=== PATIENT | female | born 1955 | race Caucasian/White ===

== ENCOUNTER → 2018-01-05 15:18 | Outpatient (CLI) | payer OTHER, SELFPAY ==
[2018-01-05 17:45] LABS: Hematocrit 37.2 % (37-47); Hemoglobin 12.6 g/dl (12.0-15.0); Mean Corp Hgb Conc 33.9 g/gl (32-36); Mean Corpuscular Hgb 30.8 pg (27.0-32.0); Mean Platelet Vol. 8.9 fl (6.2-12.0); Platelet Count 413 K/mm3 (150-450); RBC Distribution Width CV 13.1 % (11.6-14.6); RBC Distribution Width SD 43.1 fl (35.1-43.9); Red Blood Count 4.09 M/mm3 (4.2-5.4)
[2018-01-05 17:49] LABS: Scan Indicated on CBC? Y/N YES- FLAGS NOTED
[2018-01-05 18:06] LABS: Vitamin B12 > 2000 pg/mL (211-911)
[2018-01-05 18:11] LABS: AST(SGOT) 11 U/L (15-37); Alanine Aminotransfer ALT/SGPT 21 U/L (13-56); Albumin, Serum 3.9 g/dL (3.2-5.0); Alkaline Phosphatase 71 U/L (45-117); Anion Gap 9 (5-15); BUN 22 mg/dL (7-18); BUN/Creat Ratio 20.6 RATIO (10-20); Calcium,Total 9.5 mg/dL (8.5-10.1); Chloride 88 mmol/L (98-107); Creatinine, Serum 1.07 mg/dL (0.55-1.02); EST Glomerular Filtration Rate 55 mL/min (>60); Est Glom Filt Rate - Afr Amer 67 mL/min (>60); Globulin 3.9 g/dL (2.2-4.2); Glucose 92 mg/dL (74-106); Potassium 2.7 mmol/L (3.5-5.1); Protein, Total 7.8 g/dL (6.4-8.2); Sodium Level 126 mmol/L (136-145); Thyroid Stim Hormone (TSH) 1.78 uIU/mL (0.358-3.74)
== END ==
PROVIDERS: Family Provider Family Medicine; PCP Family Medicine; Visit Provider Family Medicine
DX: I10 Essential (primary) hypertension (principal); R53.83 Other fatigue; E78.5 Hyperlipidemia, unspecified; D89.9 Disorder involving the immune mechanism, unspecified
CPT/HCPCS: 36415; 80053; 82607; 84443; 85027

== ENCOUNTER → 2018-01-07 09:42 | Outpatient (CLI) | payer OTHER, SELFPAY ==
[2018-01-07 12:17] LABS: Anion Gap 9 (5-15); BUN 23 mg/dL (7-18); BUN/Creat Ratio 26.3 RATIO (10-20); Calcium,Total 9.2 mg/dL (8.5-10.1); Chloride 103 mmol/L (98-107); Creatinine, Serum 0.87 mg/dL (0.55-1.02); EST Glomerular Filtration Rate 70 mL/min (>60); Est Glom Filt Rate - Afr Amer 84 mL/min (>60); Glucose 107 mg/dL (74-106); Magnesium 1.7 mg/dL (1.6-2.6); Potassium 3.6 mmol/L (3.5-5.1); Sodium Level 137 mmol/L (136-145)
== END ==
PROVIDERS: Family Provider Family Medicine; PCP Family Medicine; Visit Provider Family Medicine
DX: E87.1 Hypo-osmolality and hyponatremia (principal); E87.6 Hypokalemia
CPT/HCPCS: 36415; 80048; 83735

== ENCOUNTER → 2018-01-19 13:11 | Outpatient (CLI) | payer OTHER, SELFPAY ==
[2018-01-19 15:37] LABS: Absolute Lymphocyte Count 1.63 X10^3/ul (0.83-4.51); Absolute Neutrophil Count 5.1 X10^3/uL (2.0-7.7); Basophil# 0.07 X10^3/uL; Basophil% 0.9 % (0-1); Eosinophil# 0.67 X10^3/uL; Eosinophils% 8.3 % (0-5); Hematocrit 36.3 % (37-47); Hemoglobin 11.9 g/dl (12.0-15.0); Lymphocyte # 1.63 X10^3/ul (4.0); Lymphocyte % 20.3 % (19-41); Mean Corp Hgb Conc 32.8 g/gl (32-36); Mean Corpuscular Hgb 31.1 pg (27.0-32.0); Mean Corpuscular Volume 94.8 fL (81-99); Mean Platelet Vol. 9.1 fl (6.2-12.0); Monocyte# 0.58 X10^3/uL; Monocyte% 7.2 % (0-10); Neutrophil # 5.06 X10^3/uL (2.7-7.7); Neutrophil % 62.9 % (47-70); Platelet Count 355 K/mm3 (150-450); RBC Distribution Width CV 13.8 % (11.6-14.6); RBC Distribution Width SD 46.2 fl (35.1-43.9); Red Blood Count 3.83 M/mm3 (4.2-5.4)
[2018-01-19 16:01] LABS: POSITIVE COUNT NO; POSITIVE DIFFERENTIAL NO; POSITIVE MORPHOLOGY NO
[2018-01-19 16:04] LABS: ALB/GLOB Ratio 0.9 RATIO (0.9-2.4); AST(SGOT) 14 U/L (15-37); Alanine Aminotransfer ALT/SGPT 19 U/L (13-56); Albumin, Serum 3.7 g/dL (3.2-5.0); Alkaline Phosphatase 59 U/L (45-117); Anion Gap 11 (5-15); BUN 13 mg/dL (7-18); CRP < 2.90 mg/L (0.0-3.0); Calcium,Total 8.9 mg/dL (8.5-10.1); Chloride 104 mmol/L (98-107); Creatinine, Serum 0.72 mg/dL (0.55-1.02); EST Glomerular Filtration Rate 87 mL/min (>60); Est Glom Filt Rate - Afr Amer 105 mL/min (>60); Globulin 3.9 g/dL (2.2-4.2); Glucose 86 mg/dL (74-106); Magnesium 1.7 mg/dL (1.6-2.6); Potassium 3.5 mmol/L (3.5-5.1); Protein, Total 7.6 g/dL (6.4-8.2); Sodium Level 138 mmol/L (136-145)
[2018-01-19 16:07] LABS: Erythrocyte Sedimentation Rate 15 mm/hr (0-30)
[2018-01-21 14:36] LABS: ANTINUCLEAR ANTIBODIES DIRECT Negative (Negative)
== END ==
PROVIDERS: Family Provider Family Medicine; PCP Family Medicine; Visit Provider Family Medicine
DX: E87.6 Hypokalemia (principal); E87.1 Hypo-osmolality and hyponatremia
CPT/HCPCS: 36415; 80053; 83735; 85025; 85652; 86038; 86140; 86225; 86235

== ENCOUNTER → 2018-01-30 06:06 | Outpatient (CLI) | payer OTHER, SELFPAY ==
--- NOTE | 2018-01-30 08:54 | STRESSREP ---
Stress Test Report Pharmacologic myocardial perfusion stress test. 62-year-old lady with a history of severe fatigue and hypertension. Medications valsartan and aspirin. Stress protocol: Resting EKG demonstrates normal sinus rhythm with a rate of 72 bpm normal intervals and noted resting blood pressure is 146/92 mmHg. 0.4 mg of regadenoson was infused per usual protocol followed by rapid intravenous saline flush injection continuous EKG monitoring was performed. Patient maintained sinus rhythm throughout the recording with occasional premature ventricular complexes noted. The maximum heart rate attained was 106 bpm which was 67% of the maximum predicted heart rate the maximum workload attained was 1 metabolic equivalent. At rest there were no ST or T-wave changes noted suggest ischemia at peak infusion no ST or T-wave changes were noted suggest ischemia. No clinical angina was noted. Myocardial perfusion protocol. 11.4 mCi of technetium 99m sestamibi was injected at rest. 0.4 mg of regadenoson was infused per usual protocol peak infusion 33.8 mCi of technetium 99m sestamibi was injected. Stress images were obtained stress and rest images were reconstructed and compared in the short axis vertical long horizontal long axis. Gated images were also obtained pre- Perfusion SPECT analysis: Review of the stress images demonstrate normal uptake of tracer noted in the septum anterior wall and anterolateral wall. There is a medium-sized defect noted in the mid inferior wall extending to the inferior lateral wall. This is present on the stress and resting images to a similar extent suggesting a previous inferior lateral infarcted zone. There is minimal annemarie-infarct ischemia present. Gated SPECT analysis. The gated ejection fraction is noted to be 71%. 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 Minimal annemarie-infarct ischemia present. Preserved ejection fraction.
== END ==
PROVIDERS: Family Provider Family Medicine; PCP Family Medicine; Visit Provider Family Medicine
DX: I10 Essential (primary) hypertension (principal); R06.09 Other forms of dyspnea; R53.83 Other fatigue
CPT/HCPCS: 78452; 93017; A9500; A4216; J2785

== ENCOUNTER → 2018-04-06 07:42 | Outpatient (CLI) | payer OTHER, SELFPAY ==
--- NOTE | 2018-04-06 07:44 | ECHOD_ITS ---
Reason For Study: Abnormal Stress Test Procedure This was a 2D Doppler, Color Flow transthoracic echocardiogram. The exam was of adequate technical quality. Exam performed in department. Left Ventricle Normal LV size. Left ventricular systolic function is normal. The estimated ejection fraction is 55 %. Diastolic function: considered indeterminate. No regional wall motion abnormalities noted. Right Ventricle Normal RV size. Normal systolic function. Atria Normal left atrium. Normal right atrium. No doppler evidence for ASD. Mitral Valve There is no mitral annular calcification. Normal mitral valve. Trivial mitral valve insufficiency. Tricuspid Valve Normal tricuspid valve. Mild tricuspid valve insufficiency. Right ventricular systolic pressure estimated to be 21 mmHg. Aortic Valve Trisinus/trileaflet aortic valve. Normal aortic valve. Pulmonic Valve The pulmonic valve is not well visualized. Great Vessels Normal sized aortic root. Pericardium/Pleural No pericardial effusion. MMode/2D Measurements & Calculations LVIDd: 4.4 cm IVSd: 1.0 cm LVOT diam: 2.0 cm LVIDs: 3.5 cm LVPWd: 0.90 cm LVOT area: 3.1 cm2 RVDd: 3.5 cm FS: 20.4 % Ao root diam: 2.9 cm LAV(MOD-bp): 44.6 ml LVAd ap4: 19.2 cm2 LA dimension: 3.4 cm LAV(MOD-bp) Indexed: 27.1 ml/m2 EDV(MOD-sp4): 45.7 ml LAV(MOD-sp2): 43.8 ml EDV(sp4-el): 45.6 ml LAV(MOD-sp4): 42.4 ml LVAs ap4: 12.1 cm2 ESV(MOD-sp4): 22.8 ml ESV(sp4-el): 21.2 ml EF(MOD-sp4): 50.2 % EF(sp4-el): 53.4 % SV(MOD-sp4): 23.0 ml SV(sp4-el): 24.3 ml LA A4 area: 16.5 cm2 RA A4 area: 12.7 cm2 Time Measurements MV dec time: 0.17 sec Doppler Measurements & Calculations MV E max yeison: 83.0 cm/sec Lat Peak E' Yeison: 7.6 cm/sec Med Peak E' Yeison: 6.5 cm/sec MV A max yeison: 110.0 cm/sec E/E' lat: 11.0 E/E' med: 12.7 MV E/A: 0.75 MV V2 max: 98.9 cm/sec MV P1/2t max yeison: 88.0 cm/sec Ao V2 max: 107.0 cm/sec MV max P.9 mmHg MV P1/2t: 94.9 msec Ao max P.6 mmHg MV V2 mean: 54.0 cm/sec MV dec slope: 271.3 cm/sec2 Ao V2 mean: 67.6 cm/sec MV mean P.4 mmHg MVA(P1/2t): 2.3 cm2 Ao mean P.1 mmHg MV V2 VTI: 31.5 cm Ao V2 VTI: 23.5 cm MVA(VTI): 1.9 cm2 KAVITA(I,D): 2.6 cm2 KAVITA(V,D): 2.5 cm2 LV V1 max: 85.1 cm/sec SV(LVOT): 61.0 ml PA V2 max: 72.5 cm/sec LV V1 max P.9 mmHg LV V1 mean P.3 mmHg LV V1 mean: 52.5 cm/sec LV V1 VTI: 19.5 cm TR max yeison: 209.1 cm/sec TR max P.5 mmHg Interpretation Summary Left ventricular systolic function is normal. The estimated ejection fraction is 55 %. Trivial mitral valve insufficiency. Mild tricuspid valve insufficiency. Right ventricular systolic pressure estimated to be 21 mmHg. Diastolic function: considered indeterminate. Ordering Physician: Sree Gill Referring Physician: Sree Gill Performed By: Gallo Mcleod RCS
[2018-04-06 10:08] LABS: Absolute Lymphocyte Count 1.59 X10^3/ul (0.83-4.51); Absolute Neutrophil Count 5.5 X10^3/uL (2.0-7.7); Basophil# 0.09 X10^3/uL; Basophil% 1.1 % (0-1); Eosinophil# 0.52 X10^3/uL; Eosinophils% 6.3 % (0-5); Hematocrit 39.3 % (37-47); Hemoglobin 12.6 g/dl (12.0-15.0); Lymphocyte # 1.59 X10^3/ul (4.0); Lymphocyte % 19.1 % (19-41); Mean Corp Hgb Conc 32.1 g/gl (32-36); Mean Corpuscular Hgb 31.3 pg (27.0-32.0); Mean Corpuscular Volume 97.5 fL (81-99); Mean Platelet Vol. 9.6 fl (6.2-12.0); Monocyte# 0.61 X10^3/uL; Monocyte% 7.3 % (0-10); Neutrophil # 5.48 X10^3/uL (2.7-7.7); Neutrophil % 65.8 % (47-70); Platelet Count 270 K/mm3 (150-450); RBC Distribution Width CV 13.2 % (11.6-14.6); RBC Distribution Width SD 46.5 fl (35.1-43.9); Red Blood Count 4.03 M/mm3 (4.2-5.4); White Blood Count 8.3 K/mm3 (4.4-11.0)
[2018-04-06 10:09] LABS: POSITIVE COUNT NO; POSITIVE DIFFERENTIAL NO; POSITIVE MORPHOLOGY NO
[2018-04-06 10:17] LABS: International Normalized Ratio 1.2; Prothrombin Time (Protime)PT. 15.6 SECONDS (11.7-14.9)
[2018-04-06 10:18] LABS: Partial Thromboplast Time 37.1 Seconds (24.1-36.2)
[2018-04-06 10:36] LABS: Anion Gap 5 (5-15); BUN 10 mg/dL (7-18); BUN/Creat Ratio 11.7 RATIO (10-20); Calcium,Total 9.2 mg/dL (8.5-10.1); Chloride 104 mmol/L (98-107); Creatinine, Serum 0.86 mg/dL (0.55-1.02); EST Glomerular Filtration Rate 71 mL/min (>60); Est Glom Filt Rate - Afr Amer 86 mL/min (>60); Glucose 80 mg/dL (74-106); Potassium 3.6 mmol/L (3.5-5.1); Sodium Level 138 mmol/L (136-145)
== END ==
PROVIDERS: Family Provider Family Medicine; PCP Family Medicine; Visit Provider Internal Medicine Cardiovascular Disease
DX: I10 Essential (primary) hypertension (principal); E78.5 Hyperlipidemia, unspecified; R94.39 Abnormal result of other cardiovascular function study
CPT/HCPCS: 36415; 80048; 85025; 85610; 85730; 93306

== ENCOUNTER 2018-04-10 10:02 | Day surgery (SDC) | payer OTHER, SELFPAY ==
--- NOTE | 2018-04-06 08:58 | RAD_ITS ---
STUDY: X-RAY CHEST REASON FOR EXAM: Female, 62 years old. Abnormal stress test. TECHNIQUE: PA and lateral views of the chest. COMPARISON: October 11, 2011 FINDINGS: The lungs are clear and expanded. There is no demonstrated pleural abnormality. Normal size heart. Normal mediastinum and jose. Normal visualized pulmonary arteries. Normal visualized aortic arch and descending thoracic aorta. There are diffuse degenerative changes of the visualized thoracic spine. Normal visualized ribs, clavicles, and shoulders. There is no demonstrated abnormality of the visualized soft tissue structures of the upper abdomen. RAD/Chest PA and Lateral IMPRESSION: No acute cardiopulmonary process. Electronically Signed: Feli Bolanos MD at 19:27 EDT Tel , Service support ,
[2018-04-09 10:51] VITALS: BMI 25.9
--- NOTE | 2018-04-10 14:34 | CL.D_ITS ---
Patient Name: LISSY MERCHANT Study Date: 04/10/2018 Performing: Sree Gill MD Ht: 61.81 inches 157 cm : 1955 Wt: 141.1 lbs 64 kg Age: 62 Gender: female BSA: 1.64 PROCEDURE(S) PERFORMED [id number]/LV CLINICAL PROFILE AND INDICATIONS Heart Failure: None Stress/Imaging Stress Test w/SPECT MPI: Yes Result: PositiveStress Test with SPECT MPI: Positive Angina Classification Anginal Classification w/in 2 Weeks: CCS III CAD Presentations: Other: Fatigue CONCLUSIONS Elevated Left Ventricular End Diastolic Pressure Segmented LV Regional Wall Motion Abnormalities with overall preserved LV systolic function LVEF: by LV gram 60 % Normal coronary arteries RECOMMENDATIONS Risk factor modification Medical therapy DESCRIPTION OF PROCEDURE The patient arrived to the procedure lab. The risks and benefits of the procedure as well as a full d escription of our services here and current unavailability of surgical backup were fully explained to the patient and/or their significant other prior to the catheterization. The Timeout was completed, verifying the correct patient and procedure. The patient's procedural site was prepped and draped in the usual fashion. Local anesthetic was given subcutaneously to right groin region with Lidocaine 2%. Using a modified Seldinger technique, arterial access was obtained via the right femoral artery, a 4 Fr sheath was inserted Left Coronary Artery selective angiography was performed in multiple views us ing a 4 Fr. JL5 catheter. Right Coronary Artery selective angiography was then performed in multiple views using a 4 Fr. 3DRC catheter. Left Ventriculography was performed in MESA projection using a 4 Fr . Pigtail catheter. LV to AO pullback pressures were then recorded.The arterial sheath was pulled and manual compression applied until hemostasis is achieved. CORONARY ANGIOGRAPHY DOMINANCE: Right Dominant LEFT HEART ASSESSMENT Left Ventricular Ejection Fraction: by LV Gram 60 % Inferior Mid Akinesis Elevated Left Ventricular End Diastolic Pressure LVEDP: 21 mmHg LEFT MAIN: Proximal [place] and otherwise angiographically normal LEFT ANTERIOR DECENDING ARTERY: Angiographically normal CIRCUMFLEX ARTERY: Angiographically normal RIGHT CORONARY ARTERY: Angiographically normal VALVE FINDINGS: Normal Aortic Valve function Normal Mitral Valve function AORTIC ROOT: Angiographically normal COMPLICATIONS No Complications PROCEDURE MEDICATIONS Versed 1 mg IV Versed 1 mg IV Oxygen: 2 L/min via nasal cannula SUMMARY OF HEMODYNAMIC DATA Time AIR REST ECG 10:33:13 AO 142/72 (102) SA 11:43:55 LV 153/6, 32 11:51:25 LV 159/0, 21 11:51:31 LV 148/0, 22 11:52:25 LVp 144/0, 21 11:52:30 AOp 145/70 (103) 11:52:35 ECG 12:17:04 Signed By Sree Gill MD On 04/10/2018 14:33:59 Sree Gill MD
== END 2018-04-10 16:04 | disposition home or self-care (01) ==
LOC: CLSP 10:03
PROVIDERS: Family Provider Family Medicine; PCP Family Medicine; Visit Provider Internal Medicine Cardiovascular Disease
DX: R94.39 Abnormal result of other cardiovascular function study (principal); E78.5 Hyperlipidemia, unspecified; I10 Essential (primary) hypertension; R53.83 Other fatigue; K21.9 Gastro-esophageal reflux disease without esophagitis; J45.909 Unspecified asthma, uncomplicated; K50.90 Crohn's disease, unspecified, without complications; Z87.891 Personal history of nicotine dependence; Z79.51 Long term (current) use of inhaled steroids; Z79.82 Long term (current) use of aspirin; Z79.899 Other long term (current) drug therapy
CPT/HCPCS: 71046; 93458; 99152; 99153; J7040; Q9967; C1769; C1894

== ENCOUNTER → 2018-05-26 07:45 | Outpatient (CLI) | payer OTHER, SELFPAY ==
--- NOTE | 2018-05-26 07:46 | ECHOD_ITS ---
Reason For Study: TAKOTSUBO SYNDROME Procedure This was a limited 2D transthoracic echocardiogram. The exam was of adequate technical quality. Limited views were obtained. Exam performed in department. Left Ventricle Normal LV size. Left ventricular systolic function is normal. The estimated ejection fraction is 60 %. No regional wall motion abnormalities noted. Right Ventricle Normal size and thickness. Normal systolic function. Atria Normal left atrium. Normal right atrium. Mitral Valve There is no mitral annular calcification. Normal mitral valve. Tricuspid Valve Normal tricuspid valve. Trivial tricuspid valve insufficiency. Aortic Valve The aortic valve is not well visualized. Pulmonic Valve The pulmonic valve is not well visualized. Pericardium/Pleural No pericardial effusion. MMode/2D Measurements & Calculations LVIDd: 4.3 cm IVSd: 1.1 cm LVIDs: 3.0 cm LVPWd: 1.0 cm FS: 28.8 % Interpretation Summary Limited views were obtained. Left ventricular systolic function is normal. The estimated ejection fraction is 60 %. Trivial tricuspid valve insufficiency. Ordering Physician: Sree Gill Referring Physician: Justin Dixon Performed By: Nicole Cody, RDCS, RVT
== END ==
PROVIDERS: Family Provider Family Medicine; PCP Family Medicine; Visit Provider Internal Medicine Cardiovascular Disease
DX: I51.81 Takotsubo syndrome (principal)
CPT/HCPCS: 93308

== ENCOUNTER → 2018-07-13 09:24 | Outpatient (CLI) | payer OTHER, SELFPAY ==
[2018-07-13 12:14] LABS: Cholesterol 134 mg/dL (200); High Density Lipoprotein 64 mg/dL; Triglycerides 98 mg/dL; Very Low Density Lipoprotein 20 mg/dL (5-40)
[2018-07-13 12:16] LABS: Vitamin D,25 Hydroxy 55.5 ng/mL (29.95-100.01)
== END ==
PROVIDERS: Family Provider Family Medicine; PCP Family Medicine; Visit Provider Family Medicine
DX: E78.5 Hyperlipidemia, unspecified (principal); M85.80 Other specified disorders of bone density and structure, unspecified site
CPT/HCPCS: 36415; 80061; 82306

== ENCOUNTER → 2018-09-10 07:46 | Outpatient (CLI) | payer OTHER, SELFPAY ==
--- NOTE | 2018-09-10 07:49 | BI_ITS ---
MAMMOGRAPHY - BILATERAL SCREENING 3-D JAE SYNTHESIS REASON FOR EXAM: Female, 63 years old. Bilateral Screening 3-D tomosynthesis PERTINENT HISTORY: No significant family history. TECHNIQUE: 2-D mammograms and 3-D Jae synthesis of the breast (s) were performed. CAD was performed. COMPARISON: July 24, 2017, June 30, 2015 FINDINGS: The breast composition is almost entirely fat. There are stable lymph nodes in both axillae. Scattered benign calcifications are seen. No dense spiculated masses or suspicious microcalcifications are identified. No architectural distortion is identified. There is no skin thickening or retraction. There has been no significant change since the prior study. BI/SCREENING MAMM (CAD), BILAT IMPRESSION: No mammographic signs of malignancy. Routine yearly mammograms recommended. ASSESSMENT CATEGORY: BIRADS Category 2: Benign. A letter regarding these results will be sent to the patient by the facility within 30 days. FOLLOW UP RECOMMENDATION: Yearly follow up mammogram recommended. (A) Approximately 10% of breast cancers are not detected by mammography. A normal mammogram should not delay biopsy of a clinically suspicious abnormality. Electronically Signed: Kolby Sharp MD at 10:42 EST , Service support ,
== END ==
PROVIDERS: Family Provider Family Medicine; PCP Family Medicine; Visit Provider Obstetrics & Gynecology
DX: Z12.31 Encounter for screening mammogram for malignant neoplasm of breast (principal)
CPT/HCPCS: 77063; 77067

== ENCOUNTER → 2018-10-14 09:41 | Outpatient (CLI) | payer OTHER, SELFPAY ==
[2018-09-18 14:39] VITALS: BMI 26.7
[2018-10-14 12:14] LABS: Erythrocyte Sedimentation Rate 5 mm/hr (0-30)
[2018-10-14 12:16] LABS: Hematocrit 37.9 % (37-47); Hemoglobin 12.1 g/dl (12.0-15.0); Mean Corp Hgb Conc 31.9 g/gl (32-36); Mean Corpuscular Hgb 31.8 pg (27.0-32.0); Mean Corpuscular Volume 99.7 fL (81-99); Mean Platelet Vol. 9.8 fl (6.2-12.0); Platelet Count 244 K/mm3 (150-450); RBC Distribution Width CV 13.7 % (11.6-14.6); RBC Distribution Width SD 48.8 fl (35.1-43.9)
[2018-10-14 12:17] LABS: Scan Indicated on CBC? Y/N NO
== END ==
PROVIDERS: Family Provider Family Medicine; PCP Family Medicine; Referring Provider Internal Medicine Gastroenterology; Visit Provider Internal Medicine Gastroenterology
DX: K50.90 Crohn's disease, unspecified, without complications (principal)
CPT/HCPCS: 36415; 85027; 85652

== ENCOUNTER → 2018-11-06 08:27 | Outpatient (CLI) | payer OTHER, SELFPAY ==
[2018-09-18 14:39] VITALS: BMI 26.7
--- NOTE | 2018-11-06 08:34 | RAD_ITS ---
PROCEDURE: SMALL BOWEL SERIES DATE OF EXAMINATION: November 06, 2018. INDICATION: Female, 63 years old. History of Crohn's disease. PHYSICIAN: Dalton Jackson M.D. FLUOROSCOPY TIME (if supplied): (1:09) minutes/seconds TECHNIQUE: Radiographic and fluoroscopic images were taken of the small intestine following the ingestion of barium. COMPARISON: Comparison is made with prior examination dated June 25, 2012. FINDINGS: A preliminary supine KUB was obtained. There is an unremarkable bowel gas pattern. Fecal material is present throughout the colon. Surgical clips are seen in the right lower quadrant. The lung bases are unremarkable. The osseous structures are normal. The patient orally ingested approximately 12 ounces of thin barium Normal visualized fundus, body, and antrum of the stomach. Normal duodenal bulb, C-loop, and proximal jejunum. Normal visualized mucosal folds of the jejunum and ileum. There are no demonstrated dilatations, strictures, or masses of the small intestine. There is no mass displacement of the loops of small intestine. There is a normal motor pattern with barium reaching the colon within approximately 30 minutes. Spot films under fluoroscopic observation demonstrated a normal terminal ileum and ileocecal valve. RAD/Small Bowel Series Only IMPRESSION: Normal small bowel series. Electronically Signed: Dalton Jackson MD at 10:45 EST , Service support ,
== END ==
PROVIDERS: Family Provider Family Medicine; PCP Family Medicine; Referring Provider Internal Medicine Gastroenterology; Visit Provider Internal Medicine Gastroenterology
DX: K50.90 Crohn's disease, unspecified, without complications (principal)
CPT/HCPCS: 74250

== ENCOUNTER → 2018-12-28 | Outpatient (CLI) | payer OTHER, SELFPAY ==
[2018-12-21 08:40] VITALS: BMI 26.7
--- NOTE | 2018-12-28 16:33 | RAD_ITS ---
STUDY: X-RAY CHEST REASON FOR EXAM: Female, 63 years old. Cough TECHNIQUE: Frontal and lateral views COMPARISON: April 06, 2018 FINDINGS: The lungs are clear and expanded. There is no demonstrated pleural abnormality. Normal size heart. Normal mediastinum and jose. Normal visualized pulmonary arteries. Normal visualized aortic arch and descending thoracic aorta. Normal visualized thoracic spine. Normal visualized ribs, clavicles, and shoulders. There is no demonstrated abnormality of the visualized soft tissue structures of the upper abdomen. RAD/Chest PA and Lateral IMPRESSION: Normal x-ray examination of the chest. Electronically Signed: Eugenio Rivera DO at 21:57 EDT Tel [phone], Service support ,
== END | disposition home or self-care (01) ==
LOC: RAD 16:31
PROVIDERS: Family Provider Family Medicine; PCP Family Medicine; Referring Provider Family Medicine; Visit Provider Family Medicine
DX: R05 Cough (principal)
CPT/HCPCS: 71046

== ENCOUNTER → 2019-04-07 | Outpatient (CLI) | payer OTHER, SELFPAY ==
[2018-12-21 08:40] VITALS: BMI 26.7
--- NOTE | 2019-04-07 11:24 | RAD_ITS ---
STUDY: X-RAY - RIGHT FOOT CLINICAL: Female, 63 years old. Pain and swelling across the foot TECHNIQUE: 3 view(s) of the foot. COMPARISON: None. FINDINGS: Normal talus, calcaneus, and tarsal bones. Normal visualized subtalar, talonavicular, calcaneocuboid, tarsal and tarsometatarsal articulations. Normal metatarsi. There is degenerative arthrosis of the metatarsophalangeal joint of the hallux . Normal tibial and fibular sesamoid bones. Normal interphalangeal joint of the great toe. Normal phalanges of the great toe. Normal second through fifth metatarsophalangeal joints. PIP and DIP joint arthrosis The soft tissue structures are unremarkable. RAD/Foot min 3 Views IMPRESSION: Degenerative arthrosis, no demonstrated fracture or suspicious osseous lesion Electronically Signed: Andres Farmer MD at 12:11 EDT , Service support ,
== END | disposition home or self-care (01) ==
LOC: HPRAD 11:21
PROVIDERS: Family Provider Family Medicine; PCP Family Medicine; Referring Provider Family Medicine; Visit Provider Family Medicine
DX: M79.671 Pain in right foot (principal)
CPT/HCPCS: 73630

== ENCOUNTER 2019-05-18 17:55 | Emergency (ER) | payer OTHER, SELFPAY ==
[2018-12-21 08:40] VITALS: BMI 26.7
[2019-05-18 17:57] VITALS: BP 188/81; PULSE 67; RESP 18; TEMP 36.7; O2SAT 99; BMI 29.7
[2019-05-18 18:04] VITALS: O2SAT 98
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
--- NOTE | 2019-05-18 18:09 | RAD_ITS ---
STUDY: X-RAY - RIGHT SHOULDER REASON FOR EXAM: Female, 63 years old. Shoulder pain TECHNIQUE: 4 view(s) of the shoulder. COMPARISON: None. FINDINGS: Normal glenohumeral articulation. Normal acromioclavicular joint. Normal acromion. Normal humeral head and visualized proximal humerus. The soft tissue structures are unremarkable. Normal visualized pulmonary apex. RAD/Shoulder min 2 Views IMPRESSION: Normal x-ray examination of the shoulder. Electronically Signed: Rupesh Damon DO at 18:53 EDT Tel , Service support ,
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
--- NOTE | 2019-05-18 18:20 | RAD_ITS ---
STUDY: X-RAY - LUMBAR SPINE REASON FOR EXAM: Female, 63 years old. Back pain TECHNIQUE: 3 view(s) of the lumbar spine were obtained. COMPARISON: None FINDINGS: Normal lumbar lordosis. There is no substantial scoliosis. There is a normal alignment of the vertebrae. There is multilevel endplate spondylosis of the lumbar vertebrae. There is multi-level degenerative disc disease with multi-level disc space narrowing. There is no demonstrated fracture. The soft tissue structures are unremarkable. RAD/Lumbar Spine 2 or 3 Views IMPRESSION: Degenerative changes of the spine, as detailed above. Electronically Signed: Rupesh Damon DO at 19:24 EDT Tel , Service support ,
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
[2019-05-18 19:59] VITALS: BP 152/84; PULSE 78; RESP 16; O2SAT 95
== END 2019-05-18 20:00 | disposition home or self-care (01) ==
LOC: ED 18:41
PROVIDERS: Emergency Provider Emergency Medicine; Family Provider Family Medicine; PCP Family Medicine
DX: S29.012A Strain of muscle and tendon of back wall of thorax, initial encounter (principal); S16.1XXA Strain of muscle, fascia and tendon at neck level, initial encounter; I25.10 Atherosclerotic heart disease of native coronary artery without angina pectoris; I25.2 Old myocardial infarction; I10 Essential (primary) hypertension; K50.90 Crohn's disease, unspecified, without complications; Z79.82 Long term (current) use of aspirin; Z79.899 Other long term (current) drug therapy; V43.52XA Car driver injured in collision with other type car in traffic accident, initial encounter; Y93.I9 Activity, other involving external motion; Y92.410 Unspecified street and highway as the place of occurrence of the external cause; Y99.8 Other external cause status
CPT/HCPCS: 70450; 72072; 72100; 72125; 73030; 99284; J7030

== ENCOUNTER → 2019-08-09 07:52 | Outpatient (CLI) | payer OTHER, SELFPAY ==
[2019-08-09 12:04] LABS: Absolute Neutrophil Count 2.5 X10^3/uL (2.0-7.7); Basophil# 0.05 X10^3/uL; Basophil% 0.9 % (0-1); Eosinophil# 0.59 X10^3/uL; Eosinophils% 10.4 % (0-5); Hematocrit 39.6 % (37-47); Hemoglobin 12.6 g/dL (12.0-15.0); Lymphocyte % 31.7 % (19-41); Mean Corp Hgb Conc 31.8 g/dL (32-36); Mean Corpuscular Hgb 30.9 pg (27.0-32.0); Mean Corpuscular Volume 97.1 fL (81-99); Monocyte# 0.66 X10^3/uL; Monocyte% 11.6 % (0-10); NRBC Flagged by Analyzer 0 % (0-5); Neutrophil # 2.54 X10^3/uL (2.7-7.7); Neutrophil % 44.9 % (47-70); Platelet Count 267 K/mm3 (150-450); RBC Distribution Width CV 13.2 % (11.6-14.6); RBC Distribution Width SD 47.4 fl (35.1-43.9); Red Blood Count 4.08 M/mm3 (4.2-5.4); White Blood Count 5.7 K/mm3 (4.4-11.0)
[2019-08-09 12:25] LABS: AST(SGOT) 15 U/L (15-37); Alanine Aminotransfer ALT/SGPT 18 U/L (13-56); Albumin, Serum 3.7 g/dL (3.2-5.0); Alkaline Phosphatase 60 U/L (45-117); Anion Gap 8 (5-15); BUN 15 mg/dL (7-18); BUN/Creat Ratio 18.2 RATIO (10-20); Chloride 105 mmol/L (98-107); Cholesterol 129 mg/dL (200); Creatinine, Serum 0.82 mg/dL (0.55-1.02); EST Glomerular Filtration Rate 74 mL/min (>60); Est Glom Filt Rate - Afr Amer 90 mL/min (>60); Globulin 3.7 g/dL (2.2-4.2); Glucose 85 mg/dL (74-106); High Density Lipoprotein 58 mg/dL; Potassium 3.7 mmol/L (3.5-5.1); Protein, Total 7.4 g/dL (6.4-8.2); Sodium Level 139 mmol/L (136-145); Triglycerides 98 mg/dL; Very Low Density Lipoprotein 20 mg/dL (5-40)
[2019-08-13 20:07] LABS: QNTFERON TB Mitogen Value > 10.00 IU/mL (.); QNTFERON TB Nil Value 0.03 IU/mL (.); QNTFERON TB1+ Ag Value 0.03 IU/mL (.); QNTFERON TB2+ Ag Value 0.03 IU/mL (.)
[2019-08-14 13:34] LABS: QNTIFERON TB Positive Criteria Negative (Negative)
== END ==
PROVIDERS: Family Provider Family Medicine; PCP Family Medicine; Visit Provider Family Medicine
DX: Z00.00 Encounter for general adult medical examination without abnormal findings (principal); L40.0 Psoriasis vulgaris; Z79.899 Other long term (current) drug therapy
CPT/HCPCS: 36415; 80053; 80061; 85025; 86480

== ENCOUNTER → 2019-08-30 17:06 | Outpatient (CLI) | payer OTHER, SELFPAY ==
[2019-08-30 09:03] VITALS: BMI 29.7
== END ==
PROVIDERS: Family Provider Family Medicine; PCP Family Medicine; Referring Provider Obstetrics & Gynecology; Visit Provider Obstetrics & Gynecology
DX: N32.81 Overactive bladder (principal)
CPT/HCPCS: 87086

== ENCOUNTER → 2019-09-30 12:20 | Outpatient (CLI) | payer OTHER, SELFPAY ==
[2019-08-30 09:03] VITALS: BMI 29.7
--- NOTE | 2019-09-30 12:21 | BI_ITS ---
MAMMOGRAPHY - BILATERAL SCREENING REASON FOR EXAM: Female, 64 years old. Routine annual screening examination. PERTINENT HISTORY: Non-contributory. TECHNIQUE: Digital bilateral breast jae (3D mammographic acquisition) in the CC and MLO projections. 2-D mediolateral oblique (MLO) and craniocaudad (CC) views of both breasts were obtained. CAD: Full Field Digital Mammography with Computer Added Detection was performed. COMPARISON: Comparison is made with prior study dated September 10, 2018 and July 24, 2017. FINDINGS: Breast Composition: The breasts are heterogeneously dense, which may obscure small masses. There are no dominant masses or suspicious calcifications. Stable benign appearing bilateral axillary lymph nodes. No other significant abnormalities are identified. There has been no significant change since the prior study. BI/SCREEN MAMM (CAD) W/JAE BILAT IMPRESSION: Stable bilateral screening mammogram. Yearly follow-up mammogram recommended. (A) ASSESSMENT CATEGORY: BIRADS Category 2: Benign. A letter regarding these results will be sent to the patient by the facility within 30 days. Approximately 10% of breast cancers are not detected by mammography. A normal mammogram should not delay biopsy of a clinically suspicious abnormality. [id number] Electronically Signed: Dalton Jackson, at 13:54 EST , Service support ,
--- NOTE | 2019-09-30 12:43 | BD_ITS ---
STUDY: DUAL ENERGY X-RAY ABSORPTIOMETRY / DXA REASON FOR EXAM: Female, 64 years old. [employer]- EARLY AT 41 YRS OLD -- HX OF HRT IN PAST FOR 13 YRS -- HX OF SMOKING FOR SHORT WHILE IN PAST -- TAKES STEROID MEDS NEEDED FOR CROHN''S -- TAKES 1200MG CALCIUM + MULTIVITAMIN -- DOES NO EXERCISE -- NO HANK TECHNIQUE: Bone Mineral Density (BMD) measurements of lumbar spine and bilateral hips were obtained. COMPARISON: Comparison is made with prior study dated July 24, 2017. FINDINGS: Lumbar Spine (L1-L4): g/cm2 (1.108) / T-score (-0.8) / Z-score (0.7) Findings are suggestive of normal bone density with a low fracture risk. Left Femur Total: g/cm2 (0.999) / T-score (-0.1) / Z-score (1.1) Left Femoral Neck: g/cm2 (0.939) / T-score (-0.7) / Z-score (0.7) Right Femur Total: g/cm2 (0.925) / T-score (-0.7) / Z-score (0.5) Right Femoral Neck: g/cm2 (0.874) / T-score (-1.2) / Z-score (0.2) The T-Scores on the most recent prior examination were: Lumbar Spine (L1-L4): There has been improvement of bone density since the previous examination. Left Femur Total: which represents a worsening of 1.5%. Right Femur Total: which represents a worsening of 3.2%. BD/Dexa Bone Density Study IMPRESSION: The patient is considered osteopenic as outlined below according to World Wili Organization (WHO) criteria with a low fracture risk. There has been worsening of bone density since the previous examination. Reference Information: The T-score is the number of standard deviations above or below the standard which is normal for young adults at their peak bone mineral density. The World Health Organization (WHO) interprets the T-scores as follows: Above -1 Normal bone density Between -1 and -2.5 Osteopenia Equal to / or below -2.5 Osteoporosis As a practical clinical guideline, osteopenia may be graded as follows: Mild -1 through -1.5 Moderate -1.6 through -2.0 Severe -2.1 through -2.4 The Z-score is the number of standard deviations above or below age-matched controls. A Z-score of less than -1.5 would be considered abnormal. References: 1. NIH Osteoporosis and Related Bone Diseases http://www.osteo.org 2. International Society for Clinical Densitometry http://www.iscd.org 3. National Osteoporosis Foundation http://www.nof.org Electronically Signed: Dalton Jackson, at 14:31 EST , Service support ,
== END ==
PROVIDERS: Family Provider Family Medicine; PCP Family Medicine; Referring Provider Obstetrics & Gynecology; Visit Provider Obstetrics & Gynecology
DX: E28.39 Other primary ovarian failure (principal); Z12.31 Encounter for screening mammogram for malignant neoplasm of breast
CPT/HCPCS: 77063; 77067; 77080

== ENCOUNTER → 2020-06-06 | Outpatient (CLI) | payer OTHER, SELFPAY ==
[2019-12-22 11:00] VITALS: BMI 26.4
[2020-06-06 08:15] LABS: CREATININE FINGERSTICK 0.9 mg/dL (0.55-1.02); EGFR FINGERSTICK > 60.0000 mL/min (>60)
--- NOTE | 2020-06-06 08:45 | CT_ITS ---
STUDY: CT ENTEROGRAPHY WITH CONTRAST REASON FOR EXAM: Female, 64 years old. Crohn''s WITH BOWEL RESECTION IN 1995. POSSIBLE FLARE UP. RADIATION DOSAGE (If Supplied By Facility): CTDIvol = ( 14.69 ) mGy, DLP = ( 1173.13 ) mGycm TECHNIQUE: Transaxial images were obtained from the dome of the diaphragm to the symphysis pubis with oral contrast. 450ml of Volumen was administered orally at 60 minutes and 40 minutes and 225ml of Volumen was administered 20 minutes and 10 minutes prior to scanning, to a total of 1,350ml. Oral and amp; IV breeza neutral and amp; 100mL Isovue-370 was administered intravenously. Sagittal and coronal images were reconstructed. TECHNICAL QUALITY: Image Quality: Satisfactory Small Bowel Distension: Adequate. Individualized dose optimization techniques were used for this CT. COMPARISON: Comparison is made with prior study dated 03/08/2015. FINDINGS: Bowel: Bowel wall thickening: Absent. Skip lesions: None. Vascularity: Normal. Enhancement: Normal. Fistula: None. Abscess: None. Other Findings: The lung bases are unremarkable. The visualized portions of the heart are within normal limits Fatty infiltration of the liver. Normal gallbladder and extrahepatic biliary system. Normal spleen. Normal pancreas. Normal bilateral adrenal glands. Normal right kidney. Normal left kidney. Normal visualized stomach. The patient is status post resection of the distal small bowel and partial right hemicolectomy. Postsurgical changes are seen. The appendix is visualized and appears normal. Normal abdominal aorta. Normal interior vena cava. Normal retroperitoneum. Normal urinary bladder. Prior hysterectomy. Normal abdominal wall. Normal osseous structures. CT/Abdomen/Pelvis WITH Contrast IMPRESSION: Postoperative changes in the right lower quadrant as described. No acute abnormality is seen. Electronically Signed: Dalton Jackson, at 10:55 EDT , Service support ,
== END | disposition home or self-care (01) ==
LOC: CT 07:55
PROVIDERS: PCP Family Medicine; Referring Provider Internal Medicine Gastroenterology; Visit Provider Internal Medicine Gastroenterology
DX: K50.90 Crohn's disease, unspecified, without complications (principal)
CPT/HCPCS: 74177; Q9967; A4216

== ENCOUNTER → 2020-06-20 | Outpatient (CLI) | payer OTHER, SELFPAY ==
[2020-06-09 10:32] VITALS: BMI 26.0
--- NOTE | 2020-06-20 09:46 | CDU_ITS ---
Reason For Study: Stenosis Rt. Velocities/BP Lt. Velocities/BP Prox CCA 52.2/12.6 cm/sec. Prox CCA 77.3/17.9 cm/sec. Mid CCA 56.0/15.4 cm/sec. Mid CCA 75.0/21.2 cm/sec. Dist CCA 62.6/19.2 cm/sec. Dist CCA 55.3/19.0 cm/sec. Prox ICA 52.0/17.9 cm/sec. Prox ICA 62.9/30.0 cm/sec. Mid ICA 82.7/26.7 cm/sec. Mid ICA 70.6/32.2 cm/sec. Dist ICA 81.7/26.7 cm/sec. Dist ICA 112.0/38.9 cm/sec. Rt. ICA/CCA = 1.48. Lt. ICA/CCA = 1.49. Prox ECA 99.2/16.8 cm/sec. Prox ECA 70.6/8.0 cm/sec. Rt. Vert. 50.9/20.1 cm/sec. Lt. Vert. 36.2/13.5 cm/sec. Right Extracranial There is intimal thickening but no significant atherosclerotic plaque noted in the right common carotid artery. There is heterogeneous, smooth atherosclerotic plaque noted in the right internal carotid artery. There is intimal thickening but no significant atherosclerotic plaque noted in the right external carotid artery. Antegrade flow is noted in the right vertebral artery. Left Extracranial There is intimal thickening but no significant atherosclerotic plaque noted in the left common carotid artery. There is heterogeneous, irregular atherosclerotic plaque noted in the left internal carotid artery. There is intimal thickening but no significant atherosclerotic plaque noted in the left external carotid artery. Procedure Carotid Duplex [id number]. Exam performed in department. Interpretation Summary Smooth plaque noted within the proximal right internal carotid artery with less than 50% stenosis <50% stenosis right external carotid Slightly irregular calcific plaque at the proximal left internal carotid artery with less than 50% stenosis <50% stenosis left external carotid Patent and antegrade vertebrals bilaterally No change from the previous examination of November 26, 2011 Ordering Physician: Sree Gill Referring Physician: Sree Gill Performed By: Amanda Lai RVT and Student
== END | disposition home or self-care (01) ==
LOC: CVS 09:46
PROVIDERS: PCP Family Medicine; Referring Provider Internal Medicine Cardiovascular Disease; Visit Provider Internal Medicine Cardiovascular Disease
DX: I65.22 Occlusion and stenosis of left carotid artery (principal); E78.5 Hyperlipidemia, unspecified; I10 Essential (primary) hypertension; I51.81 Takotsubo syndrome
CPT/HCPCS: 93880

== ENCOUNTER → 2020-08-08 15:16 | Outpatient (CLI) | payer OTHER, SELFPAY ==
[2020-08-08 12:39] VITALS: BMI 26.5
== END ==
PROVIDERS: PCP Family Medicine; Referring Provider Physician Assistant Surgical; Visit Provider Physician Assistant Surgical
DX: Z20.828 Contact with and (suspected) exposure to other viral communicable diseases (principal)
CPT/HCPCS: 87635; U0003

== ENCOUNTER → 2020-10-02 08:26 | Outpatient (CLI) | payer MEDICARE, BC, SELFPAY ==
[2020-08-14 09:41] VITALS: BMI 25.7
--- NOTE | 2020-10-02 08:29 | BI_ITS ---
MAMMOGRAPHY - BILATERAL SCREENING REASON FOR EXAM: Female, 65 years old. Routine annual screening examination. PERTINENT HISTORY: Non-contributory. TECHNIQUE: Digital bilateral breast jae (3D mammographic acquisition) in the CC and MLO projections. 2-D mediolateral oblique (MLO) and craniocaudad (CC) views of both breasts were obtained. CAD: Full Field Digital Mammography with Computer Added Detection was performed. COMPARISON: Comparison is made with prior examination dated 09/30/2019 and 09/10/2018. FINDINGS: Breast Composition: The breasts are heterogeneously dense, which may obscure small masses. There are no dominant masses or suspicious calcifications. Stable benign appearing bilateral axillary lymph nodes. No other significant abnormalities are identified. There has been no significant change since the prior study. BI/SCRN MAMM (CAD)W/JAE BILAT IMPRESSION: Stable bilateral screening mammogram. Yearly follow-up mammogram recommended. (A) ASSESSMENT CATEGORY: BIRADS Category 2: Benign. A letter regarding these results will be sent to the patient by the facility within 30 days. Approximately 10% of breast cancers are not detected by mammography. A normal mammogram should not delay biopsy of a clinically suspicious abnormality. [id number] Electronically Signed: Dalton Jackson MD at 9:24 EST , Service support ,
== END ==
PROVIDERS: PCP Family Medicine; Referring Provider Obstetrics & Gynecology; Visit Provider Obstetrics & Gynecology
DX: Z12.31 Encounter for screening mammogram for malignant neoplasm of breast (principal)
CPT/HCPCS: 77063; 77067

== ENCOUNTER → 2020-10-18 09:12 | Outpatient (CLI) | payer MEDICARE, BC, SELFPAY ==
[2020-06-09 10:32] VITALS: BMI 26.0
[2020-08-14 09:41] VITALS: BMI 25.7
[2020-10-18 12:12] LABS: Absolute Lymphocyte Count 1.59 X10^3/uL (0.83-4.51); Absolute Neutrophil Count 2.6 X10^3/uL (2.0-7.7); Basophil# 0.06 X10^3/uL; Basophil% 1.2 % (0-1); Eosinophil# 0.21 X10^3/uL; Eosinophils% 4.3 % (0-5); Hematocrit 38.3 % (37-47); Hemoglobin 12.2 g/dL (12.0-15.0); Lymphocyte # 1.59 X10^3/ul (4.0); Lymphocyte % 32.3 % (19-41); Mean Corp Hgb Conc 31.9 g/dL (32-36); Mean Corpuscular Hgb 30.3 pg (27.0-32.0); Mean Platelet Vol. 9.6 fl (6.2-12.0); Monocyte# 0.45 X10^3/uL; Monocyte% 9.1 % (0-10); NRBC Flagged by Analyzer 0 % (0-5); Neutrophil % 52.9 % (47-70); Platelet Count 258 K/mm3 (150-450); RBC Distribution Width CV 13.3 % (11.6-14.6); RBC Distribution Width SD 46.4 fl (35.1-43.9); Red Blood Count 4.03 M/mm3 (4.2-5.4); White Blood Count 4.9 K/mm3 (4.4-11.0)
[2020-10-18 12:30] LABS: Vitamin D,25 Hydroxy 55.2 ng/mL
[2020-10-18 12:44] LABS: AST(SGOT) 17 U/L (15-37); Alanine Aminotransfer ALT/SGPT 20 U/L (13-56); Albumin, Serum 3.6 g/dL (3.2-5.0); Alkaline Phosphatase 61 U/L (45-117); Anion Gap 6 (5-15); BUN 11 mg/dL (7-18); BUN/Creat Ratio 13.3 RATIO (10-20); Chloride 105 mmol/L (98-107); Cholesterol 142 mg/dL (200); Creatinine, Serum 0.82 mg/dL (0.55-1.02); EST Glomerular Filtration Rate 74 mL/min (>60); Est Glom Filt Rate - Afr Amer 89 mL/min (>60); Globulin 3.7 g/dL (2.2-4.2); Glucose 89 mg/dL (74-106); High Density Lipoprotein 80 mg/dL; Potassium 3.9 mmol/L (3.5-5.1); Protein, Total 7.3 g/dL (6.4-8.2); Sodium Level 136 mmol/L (136-145); Triglycerides 86 mg/dL; Very Low Density Lipoprotein 17 mg/dL (5-40)
== END ==
PROVIDERS: PCP Family Medicine; Visit Provider Family Medicine
DX: Z00.00 Encounter for general adult medical examination without abnormal findings (principal); M85.80 Other specified disorders of bone density and structure, unspecified site
CPT/HCPCS: 36415; 80053; 80061; 82306; 85025

== ENCOUNTER → 2021-01-08 13:57 | Outpatient (CLI) | payer MEDICARE, BC, SELFPAY ==
[2020-08-14 09:41] VITALS: BMI 25.7
[2021-01-08 15:28] LABS: Erythrocyte Sedimentation Rate 19 mm/hr (0-30)
[2021-01-08 15:33] LABS: Absolute Lymphocyte Count 1.18 X10^3/uL (0.83-4.51); Absolute Neutrophil Count 3.4 X10^3/uL (2.0-7.7); Basophil# 0.02 X10^3/uL; Basophil% 0.4 % (0-1); Eosinophils% 1.9 % (0-5); Hematocrit 37.9 % (37-47); Hemoglobin 12.2 g/dL (12.0-15.0); Lymphocyte # 1.18 X10^3/ul (0.83-4.51); Mean Corp Hgb Conc 32.2 g/dL (32-36); Mean Corpuscular Hgb 31.2 pg (27.0-32.0); Mean Corpuscular Volume 96.9 fL (81-99); Mean Platelet Vol. 9.8 fl (6.2-12.0); Monocyte# 0.62 X10^3/uL; Monocyte% 11.5 % (0-10); NRBC Flagged by Analyzer 0 % (0-5); Neutrophil # 3.41 X10^3/uL (2.7-7.7); Neutrophil % 63.5 % (47-70); Platelet Count 140 K/mm3 (150-450); RBC Distribution Width CV 14.4 % (11.6-14.6); RBC Distribution Width SD 51.7 fl (35.1-43.9); Red Blood Count 3.91 M/mm3 (4.2-5.4); White Blood Count 5.4 K/mm3 (4.4-11.0)
[2021-01-08 15:52] LABS: AST(SGOT) 20 U/L (15-37); Alanine Aminotransfer ALT/SGPT 33 U/L (13-56); Albumin, Serum 3.4 g/dL (3.2-5.0); Alkaline Phosphatase 61 U/L (45-117); Anion Gap 8 (5-15); BUN 17 mg/dL (7-18); BUN/Creat Ratio 22.4 RATIO (10-20); CRP 7.41 mg/L (0.0-3.0); Calcium,Total 8.6 mg/dL (8.5-10.1); Chloride 99 mmol/L (98-107); Creatinine, Serum 0.76 mg/dL (0.55-1.02); EST Glomerular Filtration Rate 81 mL/min (>60); Est Glom Filt Rate - Afr Amer 98 mL/min (>60); Globulin 3.3 g/dL (2.2-4.2); Glucose 94 mg/dL (74-106); Potassium 3.4 mmol/L (3.5-5.1); Protein, Total 6.7 g/dL (6.4-8.2); Rheumatoid Factor < 10.0 IU/mL (<15); Sodium Level 134 mmol/L (136-145)
[2021-01-09 10:40] LABS: Hepatitis B Surface Antibody Non-Reactive; Hepatitis B Surface Antigen Non-Reactive (Nonreactive); Hepatitis C Antibody Non-Reactive (Nonreactive)
[2021-01-10 17:12] LABS: ANTINUCLEAR ANTIBODIES DIRECT Negative (Negative)
[2021-01-11 07:48] LABS: CCP IgG Antibodies 7 units (0-19)
== END ==
PROVIDERS: PCP Family Medicine; Referring Provider Internal Medicine Rheumatology; Visit Provider Internal Medicine Rheumatology
DX: L40.59 Other psoriatic arthropathy (principal); L40.8 Other psoriasis; K50.90 Crohn's disease, unspecified, without complications; I10 Essential (primary) hypertension; R51.9 Headache, unspecified; I51.81 Takotsubo syndrome; Z79.899 Other long term (current) drug therapy
CPT/HCPCS: 36415; 80053; 85025; 85652; 86038; 86140; 86200; 86431; 86706; 86803; 87340

== ENCOUNTER → 2021-01-15 07:15 | Outpatient (CLI) | payer MEDICARE, BC, SELFPAY ==
[2020-08-14 09:41] VITALS: BMI 25.7
--- NOTE | 2021-01-15 07:29 | MRI_ITS ---
STUDY: MRI BRAIN WITH AND WITHOUT CONTRAST (ATTENTION INTERNAL AUDITORY CANALS - I.A.C.''s) REASON FOR EXAM: Female, 65 years old. R HEARING LOSS TECHNIQUE: Standardized multiplanar fat and water weighted pulse sequences were obtained. 13CC IV DOTAREM was administered for the contrast portion of the examination. COMPARISON: None. FINDINGS: Normal bilateral temporal bones. Normal bilateral internal auditory canals. There is no demonstrated intracanalicular or cisternal vestibular schwannoma (acoustic neuroma). There is no enhancement of the bilateral VIIth or VIIIth cranial nerves. Normal bilateral cochlea, vestibules and semicircular canals. Normal size of the ventricles and extra-axial spaces for the patient''s age. Normal white matter tracts of the supratentorial brain. There is no evidence for recent intracranial ischemia or other cause of cytotoxic edema on diffusion weighted imaging (DWI). Normal bilateral basal ganglia. Normal thalami. Normal flow voids within the major intracranial circulation suggesting patency by spin echo criteria. Normal venous enhancement. There is no enhancing intra-axial or extra-axial abnormality. There is no extra-axial fluid accumulation. Normal sella turcica, pituitary gland, infundibular stalk, optic chiasm and hypothalamus. Normal tectal plate and pineal gland. Normal midbrain, tay and medulla. Normal cerebellum. Normal basal cisterns. No demonstrated orbital abnormality, within the constraints of a routine brain study. Normal visualized paranasal sinuses. Normal calvarium and skull base. Normal visualized soft tissue structures. Normal visualized upper cervical spine. MRI/Brain W/WO Contrast IMPRESSION: Normal unenhanced and enhanced MRI of the bilateral internal auditory canals (I.A.C''s). Electronically Signed: Kenny Hughes MD at 11:45 EDT Tel , Service support ,
== END ==
PROVIDERS: PCP Family Medicine; Referring Provider Otolaryngology; Visit Provider Otolaryngology
DX: H90.41 Sensorineural hearing loss, unilateral, right ear, with unrestricted hearing on the contralateral side (principal)
CPT/HCPCS: 70553; A9575

== ENCOUNTER → 2021-01-16 | Outpatient (CLI) | payer MEDICARE, BC, SELFPAY ==
[2020-08-14 09:41] VITALS: BMI 25.7
== END | disposition home or self-care (01) ==
PROVIDERS: PCP Family Medicine; Visit Provider Family Medicine
DX: R50.9 Fever, unspecified (principal); R09.81 Nasal congestion; R53.83 Other fatigue
CPT/HCPCS: 87633; 87635; U0002

== ENCOUNTER → 2021-02-20 10:39 | Outpatient (CLI) | payer MEDICARE, BC, SELFPAY ==
[2020-08-14 09:41] VITALS: BMI 25.7
[2021-02-20 13:01] LABS: Progesterone Level < 0.21 ng/mL (See Comment)
[2021-02-20 13:15] LABS: Estradiol 12.8 pg/mL
[2021-02-23 07:07] LABS: QNTFERON TB Mitogen Value > 10.00 IU/mL (.); QNTFERON TB Nil Value 0 IU/mL (.); QNTFERON TB1+ Ag Value 0 IU/mL (.); QNTFERON TB2+ Ag Value 0 IU/mL (.)
[2021-02-23 11:12] LABS: DHEA Sulfate 16.6 ug/dL (20.4-186.6); QNTIFERON TB Positive Criteria Negative (Negative)
== END ==
PROVIDERS: PCP Family Medicine; Referring Provider Family Medicine; Visit Provider Family Medicine
DX: D84.9 Immunodeficiency, unspecified (principal); R23.2 Flushing; R61 Generalized hyperhidrosis
CPT/HCPCS: 36415; 82627; 82670; 84144; 84403; 84443; 86480; 82626

== ENCOUNTER → 2021-03-06 13:20 | Outpatient (CLI) | payer MEDICARE, BC, SELFPAY ==
[2020-08-14 09:41] VITALS: BMI 25.7
[2021-03-06 14:56] LABS: Erythrocyte Sedimentation Rate 13 mm/hr (0-30)
[2021-03-06 14:57] LABS: Absolute Lymphocyte Count 2.45 X10^3/uL (0.83-4.51); Absolute Neutrophil Count 3.5 X10^3/uL (2.0-7.7); Basophil# 0.05 X10^3/uL; Basophil% 0.8 % (0-1); Eosinophil# 0.17 X10^3/uL; Eosinophils% 2.6 % (0-5); Hematocrit 36.4 % (37-47); Hemoglobin 12.3 g/dL (12.0-15.0); Lymphocyte # 2.45 X10^3/ul (0.83-4.51); Lymphocyte % 37.2 % (19-41); Mean Corp Hgb Conc 33.8 g/dL (32-36); Mean Corpuscular Hgb 31.1 pg (27.0-32.0); Mean Corpuscular Volume 91.9 fL (81-99); Mean Platelet Vol. 9.7 fl (6.2-12.0); Monocyte# 0.45 X10^3/uL; Monocyte% 6.8 % (0-10); NRBC Flagged by Analyzer 0 % (0-5); Neutrophil # 3.45 X10^3/uL (2.7-7.7); Neutrophil % 52.3 % (47-70); Platelet Count 303 K/mm3 (150-450); RBC Distribution Width CV 13.9 % (11.6-14.6); RBC Distribution Width SD 46.4 fl (35.1-43.9); Red Blood Count 3.96 M/mm3 (4.2-5.4); White Blood Count 6.6 K/mm3 (4.4-11.0)
[2021-03-06 15:22] LABS: ALB/GLOB Ratio 1.2 RATIO (0.9-2.4); AST(SGOT) 24 U/L (15-37); Alanine Aminotransfer ALT/SGPT 23 U/L (13-56); Albumin, Serum 4.1 g/dL (3.2-5.0); Alkaline Phosphatase 55 U/L (45-117); Anion Gap 10 (5-15); BUN 12 mg/dL (7-18); BUN/Creat Ratio 11.4 RATIO (10-20); CRP < 2.90 mg/L (0.0-3.0); Calcium,Total 9.4 mg/dL (8.5-10.1); Chloride 98 mmol/L (98-107); Creatinine, Serum 1.05 mg/dL (0.55-1.02); EST Glomerular Filtration Rate 56 mL/min (>60); Est Glom Filt Rate - Afr Amer 68 mL/min (>60); Globulin 3.5 g/dL (2.2-4.2); Glucose 112 mg/dL (74-106); Potassium 3.4 mmol/L (3.5-5.1); Protein, Total 7.6 g/dL (6.4-8.2); Sodium Level 133 mmol/L (136-145)
== END ==
PROVIDERS: PCP Family Medicine; Referring Provider Family Medicine; Visit Provider Family Medicine
DX: R23.2 Flushing (principal); R61 Generalized hyperhidrosis; Z79.899 Other long term (current) drug therapy
CPT/HCPCS: 36415; 80053; 85025; 85652; 86140; 87086; 87088

== ENCOUNTER → 2021-03-27 07:42 | Outpatient (CLI) | payer MEDICARE, BC, SELFPAY ==
[2020-08-14 09:41] VITALS: BMI 25.7
--- NOTE | 2021-03-27 07:45 | CT_ITS ---
STUDY: CT CHEST, ABDOMEN T PELVIS WITH CONTRAST REASON FOR EXAM: Female, 65 years old. PSORIATIC ARTHRITIS AND CROHN''S DISEASE RADIATION DOSAGE (If Supplied By Facility): CTDIvol = ( 12.36 ) mGy, DLP = ( 899.46 ) mGycm TECHNIQUE: Transaxial imaging was performed following intravenous administration of Oral and IV Readi-CAT and 100mL Isovue-300. Individualized dose optimization techniques were used for this CT. COMPARISON: Comparison is made with prior CT scan of the thorax dated 10/14/[address] scan of the abdomen and pelvis dated 06/06/2020. FINDINGS: CHEST Mild increased markings in the posterior medial segment of the right lower lobe suggestive of scarring and/or atelectasis. There is no demonstrated pleural abnormality. Normal heart and pericardium. Normal mediastinum. Normal hilar regions. Normal unenhanced pulmonary arteries. Normal aorta arch and descending thoracic aorta. There are multi-level degenerative changes of the thoracic spine. There is no demonstrated abnormality of the visualized upper abdomen. ABDOMEN Subcentimeter cyst in the anterior aspect of the right lobe of the liver. This is unchanged. Mild fatty infiltration of the liver. Normal gallbladder and extrahepatic biliary system. Normal spleen. Normal pancreas. Normal bilateral adrenal glands. Normal right kidney. Normal left kidney. There is a small hiatal hernia. Normal small intestine. The patient is status post partial right hemicolectomy and resection of distal small bowel. There are scattered colonic diverticula consistent with diverticulosis. There is non-visualization of the appendix. Normal abdominal aorta. Normal inferior vena cava. Normal retroperitoneum. PELVIS Normal urinary bladder. Prior hysterectomy. Normal visualized small intestine. Normal visualized colon. There is no pelvic fluid. There is no pelvic lymphadenopathy or mass lesion. Normal visualized pelvic arteries. Normal abdominal wall. There are mild degenerative changes of the visualized lumbar spine. CT/CT Chest, Abd, Pel w/Contrast IMPRESSION: Normal enhanced CT chest, abdomen T pelvis examination. Electronically Signed: Dalton Jackson MD at 11:04 EDT , Service support ,
== END ==
PROVIDERS: PCP Family Medicine; Referring Provider Family Medicine; Visit Provider Family Medicine
DX: R23.2 Flushing (principal); R61 Generalized hyperhidrosis
CPT/HCPCS: 71260; 74177; Q9967

== ENCOUNTER → 2021-04-18 09:41 | Outpatient (CLI) | payer MEDICARE, BC, SELFPAY ==
[2020-08-14 09:41] VITALS: BMI 25.7
[2021-04-18 12:06] LABS: Absolute Lymphocyte Count 1.65 X10^3/uL (0.83-4.51); Absolute Neutrophil Count 2.6 X10^3/uL (2.0-7.7); Basophil# 0.03 X10^3/uL; Basophil% 0.6 % (0-1); Eosinophil# 0.17 X10^3/uL; Eosinophils% 3.4 % (0-5); Hematocrit 39.4 % (37-47); Hemoglobin 12.6 g/dL (12.0-15.0); Lymphocyte # 1.65 X10^3/ul (0.83-4.51); Lymphocyte % 33.3 % (19-41); Mean Corpuscular Hgb 31.7 pg (27.0-32.0); Mean Corpuscular Volume 99.2 fL (81-99); Mean Platelet Vol. 9.6 fl (6.2-12.0); Monocyte% 10.1 % (0-10); NRBC Flagged by Analyzer 0 % (0-5); Neutrophil # 2.59 X10^3/uL (2.7-7.7); Neutrophil % 52.4 % (47-70); Platelet Count 251 K/mm3 (150-450); RBC Distribution Width CV 14.1 % (11.6-14.6); RBC Distribution Width SD 51.6 fl (35.1-43.9); Red Blood Count 3.97 M/mm3 (4.2-5.4)
[2021-04-18 12:21] LABS: AST(SGOT) 18 U/L (15-37); Alanine Aminotransfer ALT/SGPT 21 U/L (13-56); Albumin, Serum 3.8 g/dL (3.2-5.0); Alkaline Phosphatase 57 U/L (45-117); Anion Gap 7 (5-15); BUN 17 mg/dL (7-18); BUN/Creat Ratio 21.5 RATIO (10-20); Calcium,Total 9.1 mg/dL (8.5-10.1); Chloride 106 mmol/L (98-107); Creatinine, Serum 0.79 mg/dL (0.55-1.02); EST Glomerular Filtration Rate 77 mL/min (>60); Est Glom Filt Rate - Afr Amer 94 mL/min (>60); Globulin 3.9 g/dL (2.2-4.2); Glucose 93 mg/dL (74-106); Potassium 3.8 mmol/L (3.5-5.1); Protein, Total 7.7 g/dL (6.4-8.2); Sodium Level 138 mmol/L (136-145)
[2021-04-18 12:42] LABS: Hepatitis B Surface Antigen Non-Reactive (Nonreactive)
[2021-04-21 05:07] LABS: QNTFERON TB Mitogen Value > 10.00 IU/mL (.); QNTFERON TB Nil Value 0.03 IU/mL (.); QNTFERON TB1+ Ag Value 0.03 IU/mL (.); QNTFERON TB2+ Ag Value 0.04 IU/mL (.)
[2021-04-21 08:35] LABS: QNTIFERON TB Positive Criteria Negative (Negative)
== END ==
PROVIDERS: Internal Medicine Rheumatology; PCP Family Medicine; Referring Provider Internal Medicine Gastroenterology; Visit Provider Internal Medicine Gastroenterology
DX: L40.59 Other psoriatic arthropathy (principal); K50.80 Crohn's disease of both small and large intestine without complications; L40.8 Other psoriasis; I10 Essential (primary) hypertension; I51.81 Takotsubo syndrome; R51.9 Headache, unspecified; Z79.899 Other long term (current) drug therapy
CPT/HCPCS: 36415; 80053; 85025; 86480; 87340

== ENCOUNTER → 2021-06-13 09:35 | Outpatient (CLI) | payer MEDICARE, BC, SELFPAY ==
[2021-06-13 12:31] LABS: Absolute Lymphocyte Count 1.54 X10^3/uL (0.83-4.51); Absolute Neutrophil Count 2.7 X10^3/uL (2.0-7.7); Basophil# 0.06 X10^3/uL; Basophil% 1.1 % (0-1); Eosinophil# 0.37 X10^3/uL; Hematocrit 40.1 % (37-47); Lymphocyte # 1.54 X10^3/ul (0.83-4.51); Mean Corp Hgb Conc 32.4 g/dL (32-36); Mean Corpuscular Hgb 33.1 pg (27.0-32.0); Mean Platelet Vol. 9.9 fl (6.2-12.0); Monocyte# 0.63 X10^3/uL; Monocyte% 11.9 % (0-10); NRBC Flagged by Analyzer 0 % (0-5); Neutrophil # 2.69 X10^3/uL (2.7-7.7); Neutrophil % 50.6 % (47-70); Platelet Count 292 K/mm3 (150-450); RBC Distribution Width CV 14.4 % (11.6-14.6); RBC Distribution Width SD 54.1 fl (35.1-43.9); Red Blood Count 3.93 M/mm3 (4.2-5.4); White Blood Count 5.3 K/mm3 (4.4-11.0)
[2021-06-13 12:47] LABS: AST(SGOT) 15 U/L (15-37); Alanine Aminotransfer ALT/SGPT 17 U/L (13-56); Albumin, Serum 3.8 g/dL (3.2-5.0); Alkaline Phosphatase 54 U/L (45-117); Anion Gap 9 (5-15); BUN 11 mg/dL (7-18); BUN/Creat Ratio 14.2 RATIO (10-20); Calcium,Total 9.1 mg/dL (8.5-10.1); Chloride 101 mmol/L (98-107); Creatinine, Serum 0.78 mg/dL (0.55-1.02); EST Glomerular Filtration Rate 79 mL/min (>60); Est Glom Filt Rate - Afr Amer 96 mL/min (>60); Glucose 95 mg/dL (74-106); Potassium 3.6 mmol/L (3.5-5.1); Protein, Total 7.8 g/dL (6.4-8.2); Sodium Level 137 mmol/L (136-145)
== END ==
PROVIDERS: PCP Family Medicine; Referring Provider Internal Medicine Rheumatology; Visit Provider Internal Medicine Rheumatology
DX: L40.59 Other psoriatic arthropathy (principal); K50.90 Crohn's disease, unspecified, without complications; I10 Essential (primary) hypertension; R51.9 Headache, unspecified; I51.81 Takotsubo syndrome; Z79.899 Other long term (current) drug therapy
CPT/HCPCS: 36415; 80053; 85025

== ENCOUNTER → 2021-06-21 | Outpatient (CLI) | payer MEDICARE, BC, SELFPAY | END | disposition home or self-care (01) | LOC: LABSPEC 06-22 06:38 | PROVIDERS: PCP Family Medicine; Referring Provider Family Medicine; Visit Provider Family Medicine | DX: Z20.822 Contact with and (suspected) exposure to COVID-19 (principal) | CPT/HCPCS: 87633; 87635; U0005; U0003 ==

== ENCOUNTER → 2021-08-24 | Outpatient (CLI) | payer MEDICARE, BC, SELFPAY | END | disposition home or self-care (01) | LOC: LABSPEC 16:40 | PROVIDERS: PCP Family Medicine; Visit Provider Family Medicine | DX: Z20.822 Contact with and (suspected) exposure to COVID-19 (principal) | CPT/HCPCS: 87635; U0005; U0003 ==

== ENCOUNTER → 2021-08-27 10:56 | Outpatient (CLI) | payer MEDICARE, BC, SELFPAY ==
[2021-08-27 12:26] LABS: Absolute Lymphocyte Count 1.43 X10^3/uL (0.83-4.51); Absolute Neutrophil Count 2.8 X10^3/uL (2.0-7.7); Basophil# 0.05 X10^3/uL; Eosinophil# 0.19 X10^3/uL; Eosinophils% 3.8 % (0-5); Hematocrit 35.8 % (37-47); Hemoglobin 11.9 g/dL (12.0-15.0); Lymphocyte # 1.43 X10^3/ul (0.83-4.51); Lymphocyte % 28.5 % (19-41); Mean Corp Hgb Conc 33.2 g/dL (32-36); Mean Corpuscular Hgb 33.7 pg (27.0-32.0); Mean Corpuscular Volume 101.4 fL (81-99); Mean Platelet Vol. 9.5 fl (6.2-12.0); Monocyte# 0.57 X10^3/uL; Monocyte% 11.4 % (0-10); NRBC Flagged by Analyzer 0 % (0-5); Neutrophil # 2.75 X10^3/uL (2.7-7.7); Neutrophil % 54.9 % (47-70); Platelet Count 231 K/mm3 (150-450); RBC Distribution Width CV 13.9 % (11.6-14.6); RBC Distribution Width SD 50.4 fl (35.1-43.9); Red Blood Count 3.53 M/mm3 (4.2-5.4)
[2021-08-27 12:44] LABS: ALB/GLOB Ratio 0.9 RATIO (0.9-2.4); AST(SGOT) 15 U/L (15-37); Alanine Aminotransfer ALT/SGPT 24 U/L (13-56); Albumin, Serum 3.3 g/dL (3.2-5.0); Alkaline Phosphatase 51 U/L (45-117); Anion Gap 5 (5-15); BUN 16 mg/dL (7-18); BUN/Creat Ratio 22.7 RATIO (10-20); Calcium,Total 9.3 mg/dL (8.5-10.1); Chloride 109 mmol/L (98-107); EST Glomerular Filtration Rate 88 mL/min (>60); Est Glom Filt Rate - Afr Amer 107 mL/min (>60); Globulin 3.7 g/dL (2.2-4.2); Glucose 93 mg/dL (74-106); Potassium 4.3 mmol/L (3.5-5.1); Sodium Level 140 mmol/L (136-145)
== END ==
PROVIDERS: PCP Family Medicine; Referring Provider Internal Medicine Rheumatology; Visit Provider Internal Medicine Rheumatology
DX: L40.59 Other psoriatic arthropathy (principal); Z79.899 Other long term (current) drug therapy; L40.8 Other psoriasis; R05.9 Cough, unspecified; K50.90 Crohn's disease, unspecified, without complications; I10 Essential (primary) hypertension; R51.9 Headache, unspecified; I51.81 Takotsubo syndrome
CPT/HCPCS: 36415; 80053; 85025; 87633

== ENCOUNTER → 2021-09-11 18:29 | Outpatient (CLI) | payer MEDICARE, BC, SELFPAY | PROVIDERS: PCP Family Medicine; Visit Provider Family Medicine | DX: R09.89 Other specified symptoms and signs involving the circulatory and respiratory systems (principal); R09.81 Nasal congestion; J02.9 Acute pharyngitis, unspecified | CPT/HCPCS: 87635; U0005; U0003 ==

== ENCOUNTER → 2021-09-13 12:09 | Outpatient (CLI) | payer MEDICARE, BC, SELFPAY ==
--- NOTE | 2021-09-13 12:13 | RAD_ITS ---
INDICATION: NASAL DRAINAGE EXAMINATION/TECHNIQUE: X-RAY - XR Sinuses Paranasal Min 3 Views COMPARISON: None. FINDINGS: There is no significant mucosal thickening. There are no air-fluid levels. Unremarkable aeration of the paranasal sinuses. The regional bones are grossly intact. RAD/Sinuses min 3 Views IMPRESSION: Unremarkable aeration of the paranasal sinuses. Electronically Signed: Donnell Corbett MD at 16:25 EST Tel , Service support ,
--- NOTE | 2021-09-13 12:13 | RAD_ITS ---
INDICATION: COUGH EXAMINATION/TECHNIQUE: X-RAY - XR Chest 2 Views COMPARISON: 04/06/2018. FINDINGS: LINES/DEVICES: None. LUNGS: Mild peribronchial cuffing is visualized. demonstrating no significant change in comparison to the prior study, no evidence of airspace opacification is seen. No evidence of focal infiltrate or consolidation. No evidence of pneumothorax or pleural effusion. MEDIASTINUM AND CARDIOVASCULAR STRUCTURES: Cardiac silhouette not enlarged. Central airways and mediastinal contour are unremarkable. BONES AND SOFT TISSUES: Unremarkable. RAD/Chest PA and Lateral IMPRESSION: No radiographic evidence of acute cardiopulmonary disease. Electronically Signed: Donnell Corbett MD at 16:27 EST Tel , Service support ,
== END ==
PROVIDERS: PCP Family Medicine; Referring Provider Family Medicine; Visit Provider Family Medicine
DX: R05.9 Cough, unspecified (principal); J34.89 Other specified disorders of nose and nasal sinuses
CPT/HCPCS: 70220; 71046

== ENCOUNTER 2021-10-05 09:52 | Outpatient (CLI) | payer MEDICARE, BC, SELFPAY ==
--- NOTE | 2021-10-05 09:54 | BI_ITS ---
MAMMOGRAPHY - BILATERAL SCREENING REASON FOR EXAM: Female, 66 years old. Routine annual screening examination. PERTINENT HISTORY: Non-contributory. TECHNIQUE: Digital bilateral breast jae (3D mammographic acquisition) in the CC and MLO projections. 2-D mediolateral oblique (MLO) and craniocaudad (CC) views of both breasts were obtained. CAD: Full Field Digital Mammography with Computer Added Detection was performed. COMPARISON: Comparison is made with prior study dated 10/02/2020 and 09/30/2019. FINDINGS: Breast Composition: The breasts are heterogeneously dense, which may obscure small masses. There are no dominant masses or suspicious calcifications. Stable benign-appearing bilateral axillary. No other significant abnormalities are identified. There has been no significant change since the prior study. BI/SCRN MAMM (CAD)W/JAE BILAT IMPRESSION: Stable bilateral screening mammogram. Yearly follow-up mammogram recommended. (A) ASSESSMENT CATEGORY: BIRADS Category 2: Benign. A letter regarding these results will be sent to the patient by the facility within 30 days. Approximately 10% of breast cancers are not detected by mammography. A normal mammogram should not delay biopsy of a clinically suspicious abnormality. [id number] Electronically Signed: Dalton Jackson MD at 11:36 EST , Service support ,
== END 2021-10-05 23:59 | disposition short-term general hospital (02) ==
LOC: OPBI 09:52
PROVIDERS: PCP Family Medicine; Referring Provider Obstetrics & Gynecology; Visit Provider Obstetrics & Gynecology
DX: Z12.31 Encounter for screening mammogram for malignant neoplasm of breast (principal)
CPT/HCPCS: 77063; 77067

== ENCOUNTER 2021-11-16 09:50 | Outpatient (CLI) | payer MEDICARE, BC, SELFPAY ==
[2021-11-16 12:12] LABS: Absolute Neutrophil Count 3.4 X10^3/uL (2.0-7.7); Basophil# 0.05 X10^3/uL; Basophil% 0.9 % (0-1); Eosinophil# 0.18 X10^3/uL; Eosinophils% 3.2 % (0-5); Hematocrit 37.5 % (37-47); Hemoglobin 12.4 g/dL (12.0-15.0); Lymphocyte % 25.3 % (19-41); Mean Corp Hgb Conc 33.1 g/dL (32-36); Mean Corpuscular Hgb 33.3 pg (27.0-32.0); Mean Corpuscular Volume 100.8 fL (81-99); Mean Platelet Vol. 9.8 fl (6.2-12.0); Monocyte# 0.54 X10^3/uL; Monocyte% 9.7 % (0-10); NRBC Flagged by Analyzer 0 % (0-5); Neutrophil # 3.36 X10^3/uL (2.7-7.7); Neutrophil % 60.7 % (47-70); Platelet Count 229 K/mm3 (150-450); RBC Distribution Width CV 14.2 % (11.6-14.6); RBC Distribution Width SD 51.7 fl (35.1-43.9); Red Blood Count 3.72 M/mm3 (4.2-5.4); White Blood Count 5.5 K/mm3 (4.4-11.0)
[2021-11-16 12:30] LABS: ALB/GLOB Ratio 0.9 RATIO (0.9-2.4); AST(SGOT) 21 U/L (15-37); Alanine Aminotransfer ALT/SGPT 27 U/L (13-56); Albumin, Serum 3.5 g/dL (3.2-5.0); Alkaline Phosphatase 55 U/L (45-117); Anion Gap 3 (5-15); BUN 17 mg/dL (7-18); BUN/Creat Ratio 21.8 RATIO (10-20); Calcium,Total 8.9 mg/dL (8.5-10.1); Chloride 106 mmol/L (98-107); Creatinine, Serum 0.78 mg/dL (0.55-1.02); EST Glomerular Filtration Rate 78 mL/min (>60); Est Glom Filt Rate - Afr Amer 95 mL/min (>60); Globulin 3.7 g/dL (2.2-4.2); Glucose 91 mg/dL (74-106); Potassium 4.1 mmol/L (3.5-5.1); Protein, Total 7.2 g/dL (6.4-8.2); Sodium Level 138 mmol/L (136-145)
== END 2021-11-16 23:59 | disposition home or self-care (01) ==
LOC: MTLAB 09:50
PROVIDERS: PCP Family Medicine; Referring Provider Internal Medicine Rheumatology; Visit Provider Internal Medicine Rheumatology
DX: L40.59 Other psoriatic arthropathy (principal); K50.90 Crohn's disease, unspecified, without complications; L40.8 Other psoriasis; R51.9 Headache, unspecified; I51.81 Takotsubo syndrome; I10 Essential (primary) hypertension; Z79.899 Other long term (current) drug therapy
CPT/HCPCS: 36415; 80053; 85025

== ENCOUNTER 2021-12-05 14:57 | Outpatient (CLI) | payer MEDICARE, BC, SELFPAY ==
--- NOTE | 2021-12-05 15:10 | RAD_ITS ---
STUDY: CERVICAL SPINE X-RAY SERIES--5 VIEWS OF 1324 HOURS ON 12/05/2021 REASON FOR EXAM: 66-year-old female with neck pain. TECHNIQUE: 5 view(s) of the cervical spine were obtained. COMPARISON: None FINDINGS: There is moderate calcification in region of the left carotid bulb and mild calcification in the region of the right carotid bulb. No vertebral body fractures or subluxations. Moderate narrowing of the C5-6 intervertebral disc space with moderate anterior and posterior osteophytic degenerative changes. Mild anterior osteophytic degenerative changes at the C5 C6-7 level. Moderate osteophytic impingement on left C3-4 and C5-6 intervertebral disc spaces. Marked osteophytic impingement on the left C5-6 intervertebral disc space. Mild osteophytic impingement on the right C4-5 and C5-6 intervertebral disc spaces. Intact pedicles, processes and facets. RAD/Cerv Spine 4 or 5 Views IMPRESSION: 1. No vertebral body fractures or subluxations. 2. Moderate narrowing of the C5-6 intervertebral disc space with moderate anterior and posterior osteophytic degenerative changes. 3. Mild anterior osteophytic degenerative changes at the C5-6 level. 4. Moderate osteophytic impingement on the left C3-C4 and C5-6 intervertebral disc spaces and marked osteophytic impingement on the left C5-6 intervertebral disc space. 5. Mild osteophytic impingement on the right C4-C5 and C5-6 intervertebral disc spaces. 6. Intact pedicles, processes and facets. 7. Moderate calcification in the region of the left carotid bulb and mild calcification in the region of the right carotid bulb. Electronically Signed: Urban De Jesus MD at 2:43 EDT ,
== END 2021-12-05 23:59 | disposition home or self-care (01) ==
LOC: RAD 14:59
PROVIDERS: PCP Family Medicine; Referring Provider Anesthesiology Pain Medicine; Visit Provider Anesthesiology Pain Medicine
DX: M54.12 Radiculopathy, cervical region (principal)
CPT/HCPCS: 72050

== ENCOUNTER 2021-12-13 10:13 | Outpatient (CLI) | payer MEDICARE, BC, SELFPAY ==
--- NOTE | 2021-12-13 10:26 | RAD_ITS ---
STUDY: X-RAY - LUMBAR SPINE REASON FOR EXAM: Female, 66 years old. Back pain Radiculopathy, lumbar region TECHNIQUE: XR Spine Lumbar 2 or 3 Views COMPARISON: None FINDINGS: Normal lumbar lordosis. There is no substantial scoliosis. There is a normal alignment of the vertebrae. There is multilevel endplate spondylosis of the lumbar vertebrae. There is multi-level degenerative disc disease with multi-level disc space narrowing. The soft tissue structures are unremarkable. RAD/Lumbar Spine 2 or 3 Views IMPRESSION: Degenerative changes of the spine, as detailed above. Electronically Signed: Carlton Sagastume MD at 16:55 EDT ,
== END 2021-12-13 23:59 | disposition home or self-care (01) ==
PROVIDERS: PCP Family Medicine; Referring Provider Anesthesiology Pain Medicine; Visit Provider Anesthesiology Pain Medicine
DX: M54.16 Radiculopathy, lumbar region (principal)
CPT/HCPCS: 72100

== ENCOUNTER → 2022-01-23 | Outpatient (CLI) | payer MEDICARE, BC, SELFPAY ==
--- NOTE | 2022-01-23 06:40 | MRI_ITS ---
STUDY: MRI LUMBAR SPINE WITHOUT CONTRAST REASON FOR EXAM: Female, 66 years old. RADICULOPATHY TECHNIQUE: Standardized fat and water weighted pulse sequences were obtained in the sagittal and axial planes. COMPARISON: X-ray the lumbar spine dated December 13, 2021 FINDINGS: Normal lumbar lordosis. There is no substantial scoliosis. Normal conus medullaris that terminates at the T12-L1 level. No fracture or compression deformity or marrow edema. T12-L1: Normal endplates. Normal disc height, hydration and morphology. Normal bilateral facet joints. Normal central canal and bilateral lateral recesses. Normal bilateral intervertebral neural foramina. L1-2: Small anterior endplate spur disc complex. Mild disc space narrowing with diffuse disc desiccation and annular bulging. Slight retrolisthesis of L1 on L2 of 2 mm. Normal bilateral facet joints. Normal central canal and bilateral lateral recesses. Normal bilateral intervertebral neural foramina. L2-3: Small anterior endplate spur disc complex. Mild disc space narrowing with diffuse disc desiccation and annular bulging. Retrolisthesis of L2 on L3 of no more than 2 mm. Normal bilateral facet joints. Normal central canal and bilateral lateral recesses. Normal bilateral intervertebral neural foramina. L3-4: Normal endplates. Mild to moderate disc space narrowing and disc desiccation with minimal annular bulging. Small annular tear in the posterior aspect of the disc. Mild facet joint hypertrophy. Normal central canal and bilateral lateral recesses. Normal bilateral intervertebral neural foramina. L4-5: Normal endplates. Mild central and moderate posterior disc space narrowing with mild posterior annular bulging. Small posterior annular tear and superimposed midline disc protrusion also noted. Small right foraminal shallow disc protrusion. Mild to moderate facet joint and ligament of flava hypertrophy contribute to bilateral lateral recess stenosis without nerve root compression. Normal central canal. Normal bilateral intervertebral neural foramina. L5-S1: Normal endplates. Mild disc space narrowing with a shallow left paracentral disc protrusion in addition to a small annular tear of the disc. Slight retrolisthesis of L5 on S1 of 2 to 3 mm. Normal bilateral facet joints. Normal central canal and bilateral lateral recesses. Normal bilateral intervertebral neural foramina. Normal visualized sacral ala. Normal visualized paraspinous soft tissue structures. MRI/Spine Lumbar (Routine) IMPRESSION: Multilevel degenerative changes, as described above. Electronically Signed: Ever Mcelroy MD at 13:59 EDT ,
== END | disposition home or self-care (01) ==
LOC: MRI 06:34
PROVIDERS: PCP Family Medicine; Referring Provider Anesthesiology Pain Medicine; Visit Provider Anesthesiology Pain Medicine
DX: M54.16 Radiculopathy, lumbar region (principal)
CPT/HCPCS: 72148

== ENCOUNTER → 2022-02-07 | Outpatient (CLI) | payer MEDICARE, BC, SELFPAY ==
--- NOTE | 2022-02-07 11:38 | RAD_ITS ---
INDICATION: LEFT HIP PAIN EXAMINATION/TECHNIQUE: X-RAY - LEFT XR Hip Unilateral with Pelvis when performed; 2-3 Views 3 VIEWS COMPARISON: Lumbar spine radiograph from 12/13/2021. FINDINGS: No acute fracture or dislocation. Femoral heads are well-seated within the acetabulum. Joint spaces are intact. Moderate bilateral femoral acetabular joint osteoarthritis. No destructive osseous changes. Multiple surgical clips project over the right sacrum. Soft tissues are otherwise unremarkable. RAD/HIP, UNI W/ Pelvis 2-3 Views IMPRESSION: 1. No acute findings. 2. Moderate bilateral femoroacetabular joint osteoarthritis. Electronically Signed: Puma Craig, at 14:28 EDT ,
[2022-02-07 13:09] LABS: Absolute Lymphocyte Count 2.42 X10^3/uL (0.83-4.51); Absolute Neutrophil Count 4.2 X10^3/uL (2.0-7.7); Basophil# 0.04 X10^3/uL; Basophil% 0.5 % (0-1); Eosinophil# 0.14 X10^3/uL; Eosinophils% 1.8 % (0-5); Hematocrit 38.5 % (37-47); Hemoglobin 12.9 g/dL (12.0-15.0); Lymphocyte # 2.42 X10^3/ul (0.83-4.51); Lymphocyte % 31.8 % (19-41); Mean Corp Hgb Conc 33.5 g/dL (32-36); Mean Corpuscular Hgb 32.7 pg (27.0-32.0); Mean Corpuscular Volume 97.7 fL (81-99); Mean Platelet Vol. 9.7 fl (6.2-12.0); Monocyte# 0.78 X10^3/uL; Monocyte% 10.2 % (0-10); NRBC Flagged by Analyzer 0 % (0-5); Neutrophil % 55.2 % (47-70); Platelet Count 244 K/mm3 (150-450); RBC Distribution Width SD 50.4 fl (35.1-43.9); Red Blood Count 3.94 M/mm3 (4.2-5.4); White Blood Count 7.6 K/mm3 (4.4-11.0)
[2022-02-07 13:46] LABS: ALB/GLOB Ratio 1.1 RATIO (0.9-2.4); AST(SGOT) 16 U/L (15-37); Alanine Aminotransfer ALT/SGPT 22 U/L (13-56); Albumin, Serum 3.8 g/dL (3.2-5.0); Alkaline Phosphatase 51 U/L (45-117); Anion Gap 7 (5-15); BUN 14 mg/dL (7-18); BUN/Creat Ratio 17.7 RATIO (10-20); Calcium,Total 9.4 mg/dL (8.5-10.1); Chloride 106 mmol/L (98-107); Creatinine, Serum 0.79 mg/dL (0.55-1.02); EST Glomerular Filtration Rate 77 mL/min (>60); Est Glom Filt Rate - Afr Amer 93 mL/min (>60); Globulin 3.4 g/dL (2.2-4.2); Glucose 82 mg/dL (74-106); Potassium 3.8 mmol/L (3.5-5.1); Protein, Total 7.2 g/dL (6.4-8.2); Sodium Level 137 mmol/L (136-145)
== END | disposition home or self-care (01) ==
PROVIDERS: Internal Medicine Rheumatology; PCP Family Medicine; Visit Provider Anesthesiology Pain Medicine
DX: L40.59 Other psoriatic arthropathy (principal); K50.90 Crohn's disease, unspecified, without complications; L40.8 Other psoriasis; I10 Essential (primary) hypertension; R51.9 Headache, unspecified; I51.81 Takotsubo syndrome; M25.552 Pain in left hip; Z79.899 Other long term (current) drug therapy
CPT/HCPCS: 36415; 73502; 80053; 85025

== ENCOUNTER → 2022-05-15 | Outpatient (CLI) | payer MEDICARE, BC, SELFPAY | END | disposition home or self-care (01) | PROVIDERS: PCP Family Medicine; Visit Provider Family Medicine | DX: R05.9 Cough, unspecified (principal) | CPT/HCPCS: 87070; 87205 ==

== ENCOUNTER → 2022-05-17 | Outpatient (CLI) | payer MEDICARE, BC, SELFPAY ==
--- NOTE | 2022-05-17 10:14 | RAD_ITS ---
INDICATION: COUGH EXAMINATION/TECHNIQUE: X-RAY - XR Chest 2 Views COMPARISON: 09/13/2021. FINDINGS: The lungs are clear. The cardiomediastinal silhouette is unremarkable. No pleural effusion or pneumothorax. No acute osseous abnormalities. RAD/Chest PA and Lateral IMPRESSION: No acute radiographic abnormalities. Electronically Signed: Octavio Styles MD at 16:52 EDT ,
== END | disposition home or self-care (01) ==
LOC: RAD 10:11
PROVIDERS: PCP Family Medicine; Referring Provider Family Medicine; Visit Provider Family Medicine
DX: R05.9 Cough, unspecified (principal)
CPT/HCPCS: 71046

== ENCOUNTER → 2022-05-22 | Outpatient (CLI) | payer MEDICARE, BC, SELFPAY ==
[2022-05-22 12:08] LABS: Absolute Lymphocyte Count 1.65 X10^3/uL (0.83-4.51); Absolute Neutrophil Count 4.5 X10^3/uL (2.0-7.7); Basophil# 0.08 X10^3/uL; Basophil% 1.1 % (0-1); Eosinophil# 0.31 X10^3/uL; Eosinophils% 4.4 % (0-5); Hematocrit 40.4 % (37-47); Hemoglobin 13.3 g/dL (12.0-15.0); Lymphocyte # 1.65 X10^3/ul (0.83-4.51); Lymphocyte % 23.3 % (19-41); Mean Corp Hgb Conc 32.9 g/dL (32-36); Mean Corpuscular Hgb 32.4 pg (27.0-32.0); Mean Corpuscular Volume 98.3 fL (81-99); Mean Platelet Vol. 9.6 fl (6.2-12.0); Monocyte% 7.1 % (0-10); NRBC Flagged by Analyzer 0 % (0-5); Neutrophil # 4.51 X10^3/uL (2.7-7.7); Neutrophil % 63.8 % (47-70); Platelet Count 252 K/mm3 (150-450); RBC Distribution Width CV 13.2 % (11.6-14.6); RBC Distribution Width SD 47.9 fl (35.1-43.9); Red Blood Count 4.11 M/mm3 (4.2-5.4); White Blood Count 7.1 K/mm3 (4.4-11.0)
[2022-05-22 12:36] LABS: ALB/GLOB Ratio 1.1 RATIO (0.9-2.4); AST(SGOT) 25 U/L (15-37); Alanine Aminotransfer ALT/SGPT 33 U/L (13-56); Albumin, Serum 4.2 g/dL (3.2-5.0); Alkaline Phosphatase 57 U/L (45-117); Anion Gap 9 (5-15); BUN 15 mg/dL (7-18); BUN/Creat Ratio 19.6 RATIO (10-20); Calcium,Total 9.8 mg/dL (8.5-10.1); Chloride 103 mmol/L (98-107); Creatinine, Serum 0.77 mg/dL (0.55-1.02); EST Glomerular Filtration Rate 80 mL/min (>60); Est Glom Filt Rate - Afr Amer 97 mL/min (>60); Globulin 3.9 g/dL (2.2-4.2); Glucose 90 mg/dL (74-106); Potassium 3.7 mmol/L (3.5-5.1); Protein, Total 8.1 g/dL (6.4-8.2); Sodium Level 139 mmol/L (136-145)
== END | disposition home or self-care (01) ==
PROVIDERS: PCP Family Medicine; Referring Provider Internal Medicine Rheumatology; Visit Provider Internal Medicine Rheumatology
DX: L40.59 Other psoriatic arthropathy (principal); K50.90 Crohn's disease, unspecified, without complications; L40.8 Other psoriasis; I10 Essential (primary) hypertension; R51.9 Headache, unspecified; I51.81 Takotsubo syndrome; Z79.899 Other long term (current) drug therapy
CPT/HCPCS: 36415; 80053; 85025

== ENCOUNTER → 2022-07-24 | Outpatient (CLI) | payer MEDICARE, BC, SELFPAY ==
[2022-07-24 08:38] LABS: Cholesterol 126 mg/dL (200); High Density Lipoprotein 71 mg/dL; Triglycerides 105 mg/dL; Very Low Density Lipoprotein 21 mg/dL (5-40)
== END | disposition home or self-care (01) ==
LOC: LAB 07:24
PROVIDERS: PCP Family Medicine; Referring Provider Family Medicine; Visit Provider Family Medicine
DX: E78.5 Hyperlipidemia, unspecified (principal)
CPT/HCPCS: 36415; 80061

== ENCOUNTER → 2022-08-20 | Outpatient (CLI) | payer MEDICARE, BC, SELFPAY ==
[2022-08-20 12:14] LABS: Absolute Lymphocyte Count 1.54 X10^3/uL (0.83-4.51); Absolute Neutrophil Count 2.1 X10^3/uL (2.0-7.7); Basophil# 0.06 X10^3/uL; Basophil% 1.4 % (0-1); Eosinophil# 0.24 X10^3/uL; Eosinophils% 5.5 % (0-5); Hematocrit 38.7 % (37-47); Hemoglobin 12.5 g/dL (12.0-15.0); Lymphocyte # 1.54 X10^3/ul (0.83-4.51); Lymphocyte % 35.2 % (19-41); Mean Corp Hgb Conc 32.3 g/dL (32-36); Mean Corpuscular Hgb 31.4 pg (27.0-32.0); Mean Corpuscular Volume 97.2 fL (81-99); Mean Platelet Vol. 9.6 fl (6.2-12.0); Monocyte# 0.39 X10^3/uL; Monocyte% 8.9 % (0-10); NRBC Flagged by Analyzer 0 % (0-5); Neutrophil # 2.13 X10^3/uL (2.7-7.7); Neutrophil % 48.5 % (47-70); Platelet Count 223 K/mm3 (150-450); RBC Distribution Width CV 13.1 % (11.6-14.6); RBC Distribution Width SD 46.9 fl (35.1-43.9); Red Blood Count 3.98 M/mm3 (4.2-5.4); White Blood Count 4.4 K/mm3 (4.4-11.0)
[2022-08-20 12:32] LABS: ALB/GLOB Ratio 1.1 RATIO (0.9-2.4); AST(SGOT) 33 U/L (15-37); Alanine Aminotransfer ALT/SGPT 46 U/L (13-56); Albumin, Serum 3.8 g/dL (3.2-5.0); Alkaline Phosphatase 57 U/L (45-117); Anion Gap 5 (5-15); BUN 16 mg/dL (7-18); BUN/Creat Ratio 22.5 RATIO (10-20); Calcium,Total 9.1 mg/dL (8.5-10.1); Chloride 106 mmol/L (98-107); Creatinine, Serum 0.71 mg/dL (0.55-1.02); EST Glomerular Filtration Rate 87 mL/min (>60); Est Glom Filt Rate - Afr Amer 106 mL/min (>60); Globulin 3.5 g/dL (2.2-4.2); Glucose 93 mg/dL (74-106); Potassium 4.1 mmol/L (3.5-5.1); Protein, Total 7.3 g/dL (6.4-8.2); Sodium Level 139 mmol/L (136-145)
== END | disposition home or self-care (01) ==
LOC: MTLAB 10:11
PROVIDERS: PCP Family Medicine; Referring Provider Internal Medicine Rheumatology; Visit Provider Internal Medicine Rheumatology
DX: L40.59 Other psoriatic arthropathy (principal); K50.90 Crohn's disease, unspecified, without complications; L40.8 Other psoriasis; I10 Essential (primary) hypertension; R51.9 Headache, unspecified; I51.81 Takotsubo syndrome; Z79.899 Other long term (current) drug therapy
CPT/HCPCS: 36415; 80053; 85025

== ENCOUNTER → 2022-10-07 | Outpatient (CLI) | payer MEDICARE, BC, SELFPAY ==
--- NOTE | 2022-10-07 07:48 | BI_ITS ---
MAMMOGRAPHY - BILATERAL SCREENING REASON FOR EXAM: Female, 67 years old. Routine annual screening examination. PERTINENT HISTORY: Non-contributory. TECHNIQUE: Digital bilateral breast jae (3D mammographic acquisition) in the CC and MLO projections. 2-D mediolateral oblique (MLO) and craniocaudad (CC) views of both breasts were obtained. CAD: Full Field Digital Mammography with Computer Added Detection was performed. COMPARISON: Comparison is made with prior study dated 10/05/2021 and 10/02/2020. FINDINGS: Breast Composition: The breasts are heterogeneously dense, which may obscure small masses. There are no dominant masses or suspicious calcifications. Stable fat-containing bilateral axillary lymph nodes. No other significant abnormalities are identified. There has been no significant change since the prior study. BI/SCRN MAMM (CAD)W/JAE BILAT IMPRESSION: Stable bilateral screening mammogram. Yearly follow-up mammogram recommended. (A) ASSESSMENT CATEGORY: BIRADS Category 2: Benign. A letter regarding these results will be sent to the patient by the facility within 30 days. Approximately 10% of breast cancers are not detected by mammography. A normal mammogram should not delay biopsy of a clinically suspicious abnormality. [id number] Electronically Signed: Dalton Jackson MD at 8:18 EST ,
== END | disposition home or self-care (01) ==
PROVIDERS: PCP Family Medicine; Referring Provider Obstetrics & Gynecology; Visit Provider Obstetrics & Gynecology
DX: Z12.31 Encounter for screening mammogram for malignant neoplasm of breast (principal); R30.0 Dysuria
CPT/HCPCS: 77063; 77067; 87086; 87088

== ENCOUNTER → 2022-10-17 | Outpatient (CLI) | payer MEDICARE, BC, SELFPAY ==
[2022-10-17 12:13] LABS: Absolute Lymphocyte Count 1.57 X10^3/uL (0.83-4.51); Absolute Neutrophil Count 3.5 X10^3/uL (2.0-7.7); Basophil# 0.04 X10^3/uL; Basophil% 0.7 % (0-1); Eosinophil# 0.19 X10^3/uL; Eosinophils% 3.2 % (0-5); Hematocrit 40.3 % (37-47); Hemoglobin 13.2 g/dL (12.0-15.0); Lymphocyte # 1.57 X10^3/ul (0.83-4.51); Lymphocyte % 26.7 % (19-41); Mean Corp Hgb Conc 32.8 g/dL (32-36); Mean Corpuscular Hgb 33.2 pg (27.0-32.0); Mean Corpuscular Volume 101.3 fL (81-99); Mean Platelet Vol. 9.6 fl (6.2-12.0); Monocyte# 0.54 X10^3/uL; Monocyte% 9.2 % (0-10); NRBC Flagged by Analyzer 0 % (0-5); Neutrophil # 3.51 X10^3/uL (2.7-7.7); Neutrophil % 59.7 % (47-70); Platelet Count 230 K/mm3 (150-450); RBC Distribution Width CV 14.7 % (11.6-14.6); RBC Distribution Width SD 54.1 fl (35.1-43.9); Red Blood Count 3.98 M/mm3 (4.2-5.4); White Blood Count 5.9 K/mm3 (4.4-11.0)
[2022-10-17 13:05] LABS: ALB/GLOB Ratio 1.2 RATIO (0.9-2.4); AST(SGOT) 28 U/L (15-37); Alanine Aminotransfer ALT/SGPT 32 U/L (13-56); Albumin, Serum 4.2 g/dL (3.2-5.0); Alkaline Phosphatase 60 U/L (45-117); Anion Gap 7 (5-15); BUN 19 mg/dL (7-18); BUN/Creat Ratio 21.3 RATIO (10-20); Calcium,Total 9.9 mg/dL (8.5-10.1); Chloride 105 mmol/L (98-107); Creatinine, Serum 0.89 mg/dL (0.55-1.02); EST Glomerular Filtration Rate 67 mL/min (>60); Est Glom Filt Rate - Afr Amer 81 mL/min (>60); Globulin 3.6 g/dL (2.2-4.2); Glucose 99 mg/dL (74-106); Potassium 4.6 mmol/L (3.5-5.1); Protein, Total 7.8 g/dL (6.4-8.2); Sodium Level 140 mmol/L (136-145)
== END | disposition home or self-care (01) ==
PROVIDERS: PCP Family Medicine; Referring Provider Internal Medicine Rheumatology; Visit Provider Internal Medicine Rheumatology
DX: L40.59 Other psoriatic arthropathy (principal); K50.90 Crohn's disease, unspecified, without complications; L40.8 Other psoriasis; I10 Essential (primary) hypertension; R51.9 Headache, unspecified; I51.81 Takotsubo syndrome; Z79.899 Other long term (current) drug therapy
CPT/HCPCS: 36415; 80053; 85025

== ENCOUNTER → 2023-01-06 | Outpatient (CLI) | payer MEDICARE, BC, SELFPAY ==
[2023-01-06 17:58] LABS: Absolute Lymphocyte Count 1.37 X10^3/uL (0.83-4.51); Absolute Neutrophil Count 2.6 X10^3/uL (2.0-7.7); Basophil# 0.04 X10^3/uL; Basophil% 0.9 % (0-1); Eosinophil# 0.13 X10^3/uL; Eosinophils% 2.9 % (0-5); Hematocrit 34.7 % (37-47); Hemoglobin 11.3 g/dL (12.0-15.0); Lymphocyte # 1.37 X10^3/ul (0.83-4.51); Lymphocyte % 30.4 % (19-41); Mean Corp Hgb Conc 32.6 g/dL (32-36); Mean Corpuscular Hgb 32.7 pg (27.0-32.0); Mean Corpuscular Volume 100.3 fL (81-99); Monocyte# 0.37 X10^3/uL; Monocyte% 8.2 % (0-10); NRBC Flagged by Analyzer 0 % (0-5); Neutrophil # 2.57 X10^3/uL (2.7-7.7); Neutrophil % 57.2 % (47-70); Platelet Count 226 K/mm3 (150-450); RBC Distribution Width CV 14.2 % (11.6-14.6); RBC Distribution Width SD 51.2 fl (35.1-43.9); Red Blood Count 3.46 M/mm3 (4.2-5.4); White Blood Count 4.5 K/mm3 (4.4-11.0)
[2023-01-06 18:19] LABS: Vitamin B12 300 pg/mL (211-911); Vitamin D,25 Hydroxy 115.6 ng/mL
[2023-01-06 18:41] LABS: BNP,B-Type NATRIURETIC PEPTIDE 64.2 pg/mL (0-100)
[2023-01-06 18:55] LABS: ALB/GLOB Ratio 1.1 RATIO (0.9-2.4); AST(SGOT) 21 U/L (15-37); Alanine Aminotransfer ALT/SGPT 28 U/L (13-56); Albumin, Serum 3.9 g/dL (3.2-5.0); Alkaline Phosphatase 58 U/L (45-117); BUN 19 mg/dL (7-18); BUN/Creat Ratio 23.9 RATIO (10-20); Calcium,Total 9.2 mg/dL (8.5-10.1); Chloride 110 mmol/L (98-107); EST Glomerular Filtration Rate 76 mL/min (>60); Est Glom Filt Rate - Afr Amer 92 mL/min (>60); Globulin 3.6 g/dL (2.2-4.2); Glucose 94 mg/dL (74-106); Potassium 3.6 mmol/L (3.5-5.1); Protein, Total 7.5 g/dL (6.4-8.2); Sodium Level 140 mmol/L (136-145)
[2023-01-06 18:56] LABS: Anion Gap 6 (5-15); Thyroid Stim Hormone (TSH) 1.38 uIU/mL (0.358-3.74)
== END | disposition home or self-care (01) ==
LOC: BFHLAB 15:55
PROVIDERS: PCP Family Medicine; Referring Provider Family Medicine; Visit Provider Family Medicine
DX: R53.83 Other fatigue (principal); I42.9 Cardiomyopathy, unspecified; E55.9 Vitamin D deficiency, unspecified; I51.81 Takotsubo syndrome
CPT/HCPCS: 36415; 80053; 82306; 82607; 83880; 84443; 85025

== ENCOUNTER → 2023-01-17 | Outpatient (CLI) | payer MEDICARE, BC, SELFPAY ==
--- NOTE | 2023-01-17 13:47 | ECHOCS_ITS ---
Reason For Study: Fatigue, Dyspnea Procedure This was a 2D Doppler, Color Flow transthoracic echocardiogram. Contrast injection was performed. Exam performed in department. Left Ventricle Normal LV size. Mild concentric left ventricular hypertrophy. The left ventricular ejection fraction is 60 %. Normal diastololic function. Mild posterior basal and mid inferior hypokinesis. Right Ventricle Normal right ventricle. Atria The left and right atria are normal. Mitral Valve There is Mild focal posterior mitral annular calcification. Mild (1+) mitral valve insufficiency. Tricuspid Valve Trivial tricuspid valve insufficiency. Unable to estimate RV systolic pressure due to insufficient tricuspid regurgitant envelope. Aortic Valve Normal aortic valve. Pulmonic Valve The pulmonic valve is not well visualized. Great Vessels Normal sized aortic root. Pericardium/Pleural No pericardial effusion. Medication Diluted definity 3ml given slow IV push to enhance endocardial definition. MMode/2D Measurements & Calculations LVIDd: 3.9 cm IVSd: 1.2 cm Ao root diam: 2.9 cm LVIDs: 2.6 cm LVPWd: 1.2 cm RVDd: 2.5 cm FS: 34.1 % LAV(MOD-bp): 43.0 ml LVAd ap4: 24.7 cm2 SV(MOD-sp4): 44.7 ml LAV(MOD-bp) Indexed: 25.1 ml/m2 LVLd ap4: 6.9 cm LAV(MOD-sp2): 40.5 ml EDV(MOD-sp4): 71.5 ml LAV(MOD-sp4): 42.5 ml EDV(sp4-el): 75.2 ml LVAs ap4: 13.8 cm2 LVLs ap4: 6.1 cm ESV(MOD-sp4): 26.8 ml ESV(sp4-el): 26.7 ml EF(MOD-sp4): 62.5 % EF(sp4-el): 64.5 % SV(sp4-el): 48.5 ml LA A4 area: 16.1 cm2 LA dimension(2D): 2.9 cm RA A4 area: 9.9 cm2 TAPSE_phl: 2.4 cm Time Measurements MV dec time: 0.27 sec Doppler Measurements & Calculations MV E max yeison: 85.7 cm/sec Lat Peak E' Yeison: 8.1 cm/sec Med Peak E' Yeison: 8.4 cm/sec MV A max yeison: 99.2 cm/sec E/E' lat: 10.6 E/E' med: 10.2 MV E/A: 0.86 MV dec slope: 319.3 cm/sec2 Ao V2 max: 132.5 cm/sec LV V1 max: 113.6 cm/sec Ao max P.0 mmHg LV V1 max P.2 mmHg Ao V2 mean: 90.9 cm/sec Ao mean P.8 mmHg Ao V2 VTI: 32.8 cm PA V2 max: 77.6 cm/sec TR max yeison: 215.9 cm/sec TR max P.7 mmHg ECHO/Echo Complete W/ Contrast Interpretation Summary Mild concentric left ventricular hypertrophy. The left ventricular ejection fraction is 60 %. Mild posterior basal and mid in ferior hypokinesis Mild (1+) mitral valve insufficiency. Ordering Physician: Justin Dixon Referring Physician: Justin Dixon Performed By: Joann Alberto, ADELA, RVT
== END | disposition home or self-care (01) ==
LOC: CVS 13:45
PROVIDERS: PCP Family Medicine; Referring Provider Family Medicine; Visit Provider Family Medicine
DX: R53.83 Other fatigue (principal); R06.00 Dyspnea, unspecified
CPT/HCPCS: 93306; Q9957; A4216; C8929

== ENCOUNTER → 2023-01-20 | Outpatient (CLI) | payer MEDICARE, BC, SELFPAY ==
[2023-01-20 12:06] LABS: Absolute Lymphocyte Count 1.18 X10^3/uL (0.83-4.51); Absolute Neutrophil Count 2.9 X10^3/uL (2.0-7.7); Basophil# 0.04 X10^3/uL; Basophil% 0.9 % (0-1); Eosinophil# 0.15 X10^3/uL; Eosinophils% 3.2 % (0-5); Hematocrit 37.9 % (37-47); Hemoglobin 12.3 g/dL (12.0-15.0); Lymphocyte # 1.18 X10^3/ul (0.83-4.51); Lymphocyte % 25.5 % (19-41); Mean Corp Hgb Conc 32.5 g/dL (32-36); Mean Corpuscular Hgb 32.9 pg (27.0-32.0); Mean Corpuscular Volume 101.3 fL (81-99); Monocyte# 0.34 X10^3/uL; Monocyte% 7.4 % (0-10); NRBC Flagged by Analyzer 0 % (0-5); Neutrophil # 2.89 X10^3/uL (2.7-7.7); Neutrophil % 62.6 % (47-70); Platelet Count 226 K/mm3 (150-450); RBC Distribution Width SD 51.5 fl (35.1-43.9); Red Blood Count 3.74 M/mm3 (4.2-5.4); White Blood Count 4.6 K/mm3 (4.4-11.0)
[2023-01-20 12:30] LABS: ALB/GLOB Ratio 1.2 RATIO (0.9-2.4); AST(SGOT) 20 U/L (15-37); Alanine Aminotransfer ALT/SGPT 26 U/L (13-56); Albumin, Serum 3.9 g/dL (3.2-5.0); Alkaline Phosphatase 61 U/L (45-117); Anion Gap 9 (5-15); BUN 12 mg/dL (7-18); BUN/Creat Ratio 12.3 RATIO (10-20); Calcium,Total 9.5 mg/dL (8.5-10.1); Chloride 107 mmol/L (98-107); Creatinine, Serum 0.98 mg/dL (0.55-1.02); EST Glomerular Filtration Rate 60 mL/min (>60); Est Glom Filt Rate - Afr Amer 73 mL/min (>60); Globulin 3.3 g/dL (2.2-4.2); Glucose 124 mg/dL (74-106); Potassium 3.6 mmol/L (3.5-5.1); Protein, Total 7.2 g/dL (6.4-8.2); Sodium Level 143 mmol/L (136-145)
== END | disposition home or self-care (01) ==
PROVIDERS: PCP Family Medicine; Referring Provider Internal Medicine Rheumatology; Visit Provider Internal Medicine Rheumatology
DX: L40.59 Other psoriatic arthropathy (principal); L40.8 Other psoriasis; Z79.899 Other long term (current) drug therapy
CPT/HCPCS: 36415; 80053; 85025

== ENCOUNTER → 2023-01-21 | Outpatient (CLI) | payer MEDICARE, BC, SELFPAY ==
--- NOTE | 2023-01-21 08:31 | RAD_ITS ---
INDICATION: Dyspnea on exertion EXAMINATION/TECHNIQUE: X-RAY - XR Chest 2 Views COMPARISON: Two-view chest x-ray from 05/17/2022 FINDINGS: LINES/DEVICES: None. LUNGS: Hyperexpanded lungs and flattened diaphragms again noted. No pulmonary edema or focal airspace consolidation. No sizable pleural effusion. No pneumothorax detected. MEDIASTINUM AND CARDIOVASCULAR STRUCTURES: Heart size within normal limits. Mediastinal contours unremarkable. BONES AND SOFT TISSUES: Stable mild dextroscoliotic curvature of thoracolumbar spine. RAD/Chest PA and Lateral IMPRESSION: COPD Electronically Signed: Justin Cornelius MD at 1:23 EDT ,
== END | disposition home or self-care (01) ==
LOC: RAD 08:30
PROVIDERS: PCP Family Medicine; Referring Provider Family Medicine; Visit Provider Family Medicine
DX: R06.09 Other forms of dyspnea (principal)
CPT/HCPCS: 71046

== ENCOUNTER → 2023-01-23 | Outpatient (CLI) | payer MEDICARE, BC, SELFPAY ==
[2023-01-23 15:06] LABS: BNP,B-Type NATRIURETIC PEPTIDE 96.2 pg/mL (0-100)
== END | disposition home or self-care (01) ==
PROVIDERS: PCP Family Medicine; Referring Provider Nurse Practitioner Family; Visit Provider Nurse Practitioner Family
DX: R06.09 Other forms of dyspnea (principal)
CPT/HCPCS: 36415; 83880

== ENCOUNTER → 2023-04-15 | Outpatient (CLI) | payer MEDICARE, BC, SELFPAY ==
[2023-04-15 12:12] LABS: Absolute Lymphocyte Count 0.85 X10^3/uL (0.83-4.51); Absolute Neutrophil Count 3.4 X10^3/uL (2.0-7.7); Basophil# 0.02 X10^3/uL; Basophil% 0.4 % (0-1); Hematocrit 38.8 % (37-47); Hemoglobin 12.5 g/dL (12.0-15.0); Lymphocyte # 0.85 X10^3/ul (0.83-4.51); Lymphocyte % 17.3 % (19-41); Mean Corp Hgb Conc 32.2 g/dL (32-36); Mean Corpuscular Hgb 33.2 pg (27.0-32.0); Mean Corpuscular Volume 102.9 fL (81-99); Mean Platelet Vol. 9.6 fl (6.2-12.0); Monocyte# 0.53 X10^3/uL; Monocyte% 10.8 % (0-10); NRBC Flagged by Analyzer 0 % (0-5); Neutrophil # 3.38 X10^3/uL (2.7-7.7); Neutrophil % 69.1 % (47-70); Platelet Count 197 K/mm3 (150-450); RBC Distribution Width CV 14.8 % (11.6-14.6); RBC Distribution Width SD 54.5 fl (35.1-43.9); Red Blood Count 3.77 M/mm3 (4.2-5.4); White Blood Count 4.9 K/mm3 (4.4-11.0)
[2023-04-15 12:22] LABS: ALB/GLOB Ratio 1.1 RATIO (0.9-2.4); AST(SGOT) 18 U/L (15-37); Alanine Aminotransfer ALT/SGPT 33 U/L (13-56); Albumin, Serum 3.6 g/dL (3.2-5.0); Alkaline Phosphatase 61 U/L (45-117); Anion Gap 6 (5-15); BUN 14 mg/dL (7-18); BUN/Creat Ratio 16.4 RATIO (10-20); Calcium,Total 9.4 mg/dL (8.5-10.1); Chloride 104 mmol/L (98-107); Creatinine, Serum 0.85 mg/dL (0.55-1.02); EST Glomerular Filtration Rate 70 mL/min (>60); Est Glom Filt Rate - Afr Amer 85 mL/min (>60); Globulin 3.4 g/dL (2.2-4.2); Glucose 80 mg/dL (74-106); Potassium 3.7 mmol/L (3.5-5.1); Sodium Level 138 mmol/L (136-145)
== END | disposition home or self-care (01) ==
LOC: MTLAB 09:21
PROVIDERS: PCP Family Medicine; Referring Provider Internal Medicine Rheumatology; Visit Provider Internal Medicine Rheumatology
DX: L40.59 Other psoriatic arthropathy (principal); Z79.899 Other long term (current) drug therapy; L40.8 Other psoriasis
CPT/HCPCS: 36415; 80053; 85025

== ENCOUNTER → 2023-08-11 | Outpatient (CLI) | payer MEDICARE, BC, SELFPAY ==
[2023-08-11 13:20] LABS: Absolute Lymphocyte Count 1.23 X10^3/uL (0.83-4.51); Absolute Neutrophil Count 1.1 X10^3/uL (2.0-7.7); Basophil# 0.01 X10^3/uL; Basophil% 0.4 % (0-1); Eosinophil# 0.13 X10^3/uL; Eosinophils% 4.9 % (0-5); Hematocrit 36.5 % (37-47); Hemoglobin 11.7 g/dL (12.0-15.0); Lymphocyte # 1.23 X10^3/ul (0.83-4.51); Lymphocyte % 46.1 % (19-41); Mean Corp Hgb Conc 32.1 g/dL (32-36); Mean Corpuscular Volume 99.7 fL (81-99); Monocyte# 0.16 X10^3/uL; NRBC Flagged by Analyzer 0 % (0-5); Neutrophil # 1.13 X10^3/uL (2.7-7.7); Neutrophil % 42.2 % (47-70); Platelet Count 189 K/mm3 (150-450); RBC Distribution Width CV 14.2 % (11.6-14.6); Red Blood Count 3.66 M/mm3 (4.2-5.4); White Blood Count 2.7 K/mm3 (4.4-11.0)
[2023-08-11 13:58] LABS: ALB/GLOB Ratio 1.1 RATIO (0.9-2.4); AST(SGOT) 17 U/L (15-37); Alanine Aminotransfer ALT/SGPT 19 U/L (13-56); Albumin, Serum 3.8 g/dL (3.2-5.0); Alkaline Phosphatase 64 U/L (45-117); Anion Gap 2 (5-15); BUN 12 mg/dL (7-18); BUN/Creat Ratio 16.1 RATIO (10-20); Calcium,Total 9.1 mg/dL (8.5-10.1); Chloride 104 mmol/L (98-107); Creatinine, Serum 0.75 mg/dL (0.55-1.02); EST Glomerular Filtration Rate 82 mL/min (>60); Est Glom Filt Rate - Afr Amer 99 mL/min (>60); Globulin 3.4 g/dL (2.2-4.2); Glucose 78 mg/dL (74-106); Potassium 3.6 mmol/L (3.5-5.1); Protein, Total 7.2 g/dL (6.4-8.2); Sodium Level 136 mmol/L (136-145)
== END | disposition home or self-care (01) ==
LOC: LAB 12:55
PROVIDERS: PCP Family Medicine; Referring Provider Internal Medicine Rheumatology; Visit Provider Internal Medicine Rheumatology
DX: L40.59 Other psoriatic arthropathy (principal); L40.8 Other psoriasis; Z79.899 Other long term (current) drug therapy
CPT/HCPCS: 36415; 80053; 85025

== ENCOUNTER → 2023-08-13 | Outpatient (CLI) | payer MEDICARE, BC, SELFPAY | END | disposition home or self-care (01) | PROVIDERS: PCP Family Medicine; Referring Provider Internal Medicine Gastroenterology; Visit Provider Internal Medicine Gastroenterology | DX: K50.90 Crohn's disease, unspecified, without complications (principal) | CPT/HCPCS: 36415 ==

== ENCOUNTER → 2023-09-16 | Outpatient (CLI) | payer MEDICARE, BC, SELFPAY ==
[2023-09-16 15:17] LABS: Absolute Lymphocyte Count 1.31 X10^3/uL (0.83-4.51); Basophil# 0.01 X10^3/uL; Basophil% 0.4 % (0-1); Eosinophil# 0.07 X10^3/uL; Eosinophils% 2.9 % (0-5); Hematocrit 34.4 % (37-47); Hemoglobin 11.1 g/dL (12.0-15.0); Lymphocyte # 1.31 X10^3/ul (0.83-4.51); Lymphocyte % 53.7 % (19-41); Mean Corp Hgb Conc 32.3 g/dL (32-36); Mean Corpuscular Hgb 31.4 pg (27.0-32.0); Mean Corpuscular Volume 97.5 fL (81-99); Mean Platelet Vol. 9.7 fl (6.2-12.0); Monocyte% 4.1 % (0-10); NRBC Flagged by Analyzer 0 % (0-5); Neutrophil # 0.95 X10^3/uL (2.7-7.7); Neutrophil % 38.9 % (47-70); POSITIVE DIFFERENTIAL YES; POSITIVE MORPHOLOGY YES; Platelet Count 147 K/mm3 (150-450); RBC Distribution Width CV 13.7 % (11.6-14.6); RBC Distribution Width SD 48.9 fl (35.1-43.9); Red Blood Count 3.53 M/mm3 (4.2-5.4); White Blood Count 2.4 K/mm3 (4.4-11.0)
[2023-09-16 15:18] LABS: Differential Indicated SCAN CRITERIA MET
[2023-09-16 15:36] LABS: ALB/GLOB Ratio 1.2 RATIO (0.9-2.4); AST(SGOT) 18 U/L (15-37); Alanine Aminotransfer ALT/SGPT 18 U/L (13-56); Albumin, Serum 3.8 g/dL (3.2-5.0); Alkaline Phosphatase 54 U/L (45-117); Anion Gap 6 (5-15); BUN 11 mg/dL (7-18); BUN/Creat Ratio 14.6 RATIO (10-20); Calcium,Total 8.9 mg/dL (8.5-10.1); Chloride 105 mmol/L (98-107); Creatinine, Serum 0.75 mg/dL (0.55-1.02); EST Glomerular Filtration Rate 81 mL/min (>60); Est Glom Filt Rate - Afr Amer 99 mL/min (>60); Globulin 3.3 g/dL (2.2-4.2); Glucose 94 mg/dL (74-106); Potassium 3.5 mmol/L (3.5-5.1); Protein, Total 7.1 g/dL (6.4-8.2); Sodium Level 138 mmol/L (136-145)
[2023-09-16 17:18] LABS: Differential Comment SCANNED
[2023-09-16 17:19] LABS: Reactive Lymphocyte 1+
== END | disposition home or self-care (01) ==
PROVIDERS: PCP Family Medicine; Referring Provider Internal Medicine Rheumatology; Visit Provider Internal Medicine Rheumatology
DX: L40.59 Other psoriatic arthropathy (principal); L40.8 Other psoriasis; Z79.899 Other long term (current) drug therapy
CPT/HCPCS: 36415; 80053; 85025

== ENCOUNTER → 2023-10-17 | Outpatient (CLI) | payer MEDICARE, BC, SELFPAY ==
--- NOTE | 2023-10-17 08:56 | VDLE_ITS ---
Reason For Study: SUSPECTED PHLEBITISOF LLE, R/O DVT RIGHT LEFT CFV is compressible, spontaneous, phasic, GSV is normal. competent and demonstrates normal CFV is compressible, spontaneous, phasic, augmentation. competent, and demonstrates normal Procedure augmentation. This is a venous duplex using B-mode, color FV is compressible, spontaneous, phasic, flow and spectral Doppler. competent and demonstrates normal Exam performed in department. augmentation. The exam was diagnostic. POP V is compressible, spontaneous, phasic, A preliminary report was called and/or faxed competent and demonstrates normal to Dr. Dixon @ [phone] @ 9:30 am. augmentation. T/P Trunk is compressible. PTV is compressible. LT PerV is compressible. SSV is compressible throughout. VL/Venous Duplex US, Unilateral Interpretation Summary Deep veins of the left lower extremity are patent and compressible segmentally. There is no evidence of left lower extremity deep vein thrombosis. The left great saphenous vein kandice ears patent and compressible segmentally. Ordering Physician: Justin Dixon Referring Physician: Justin Dixon Performed By: Doris Castrejon, ADELA, RVT
== END | disposition home or self-care (01) ==
LOC: CVS 08:52
PROVIDERS: PCP Family Medicine; Referring Provider Family Medicine; Visit Provider Family Medicine
DX: I80.02 Phlebitis and thrombophlebitis of superficial vessels of left lower extremity (principal)
CPT/HCPCS: 93971

== ENCOUNTER → 2023-10-30 | Outpatient (CLI) | payer MEDICARE, BC, SELFPAY ==
--- NOTE | 2023-10-30 09:51 | BI_ITS ---
MAMMOGRAPHY - BILATERAL SCREENING REASON FOR EXAM: Female, 68 years old. Routine annual screening examination. PERTINENT HISTORY: Non-contributory. TECHNIQUE: Digital bilateral breast jae (3D mammographic acquisition) in the CC and MLO projections. 2-D mediolateral oblique (MLO) and craniocaudad (CC) views of both breasts were obtained. CAD: Full Field Digital Mammography with Computer Added Detection was performed. COMPARISON: Comparison is made with prior study dated October 07, 2022 and October 05, 2021. FINDINGS: Breast Composition: The breasts are heterogeneously dense, which may obscure small masses. There are no dominant masses or suspicious calcifications. Stable benign-appearing bilateral axillary lymph nodes. No other significant abnormalities are identified. There has been no significant change since the prior study. BI/SCRN MAMM (CAD)W/JAE BILAT IMPRESSION: Stable bilateral screening mammogram. Yearly follow-up mammogram recommended. (A) ASSESSMENT CATEGORY: BIRADS Category 2: Benign. A letter regarding these results will be sent to the patient by the facility within 30 days. Approximately 10% of breast cancers are not detected by mammography. A normal mammogram should not delay biopsy of a clinically suspicious abnormality. [id number] Electronically Signed: Dalton Jackson MD at 10:52 EST ,
== END | disposition home or self-care (01) ==
LOC: OPBI 09:51
PROVIDERS: PCP Family Medicine; Referring Provider Obstetrics & Gynecology; Visit Provider Obstetrics & Gynecology
DX: Z12.31 Encounter for screening mammogram for malignant neoplasm of breast (principal)
CPT/HCPCS: 77063; 77067

== ENCOUNTER → 2023-11-20 | Outpatient (CLI) | payer MEDICARE, BC, SELFPAY ==
--- NOTE | 2023-11-20 10:49 | BD_ITS ---
STUDY: DUAL ENERGY X-RAY ABSORPTIOMETRY / DXA REASON FOR EXAM: Female, 68 years old. POST RE TECHNIQUE: Bone Mineral Density (BMD) measurements of lumbar spine and bilateral hips were obtained. COMPARISON: Comparison is made with prior study dated September 30, 2019. FINDINGS: Lumbar Spine (L1-L4): g/cm2 (0.940) / T-score (-1.0) / Z-score (1.0) Findings are suggestive of osteopenia with a low fracture risk. Left Femur Total: g/cm2 (0.911) / T-score (-0.3) / Z-score (1.1) Left Femoral Neck: g/cm2 (0.720) / T-score (-1.2) / Z-score (0.5) Right Femur Total: g/cm2 (0.853) / T-score (-0.7) / Z-score (0.7) Right Femoral Neck: g/cm2 (0.658) / T-score (-1.7) / Z-score (0.0) The T-Scores on the most recent prior examination were: Lumbar Spine (L1-L4): There has been worsening of bone density since the previous examination. Left Femur Total: which represents a worsening of 2.3%. Right Femur Total: which represents a worsening of 0.9%. BD/Dexa Bone Density Study IMPRESSION: The patient is considered osteopenic as outlined below according to World Wili Organization (WHO) criteria with a moderate fracture risk. There has been worsening of bone density since the previous examination. Reference Information: The T-score is the number of standard deviations above or below the standard which is normal for young adults at their peak bone mineral density. The World Health Organization (WHO) interprets the T-scores as follows: Above -1 Normal bone density Between -1 and -2.5 Osteopenia Equal to / or below -2.5 Osteoporosis As a practical clinical guideline, osteopenia may be graded as follows: Mild -1 through -1.5 Moderate -1.6 through -2.0 Severe -2.1 through -2.4 The Z-score is the number of standard deviations above or below age-matched controls. A Z-score of less than -1.5 would be considered abnormal. References: 1. NIH Osteoporosis and Related Bone Diseases www osteo.org 2. International Society for Clinical Densitometry www iscd.org 3. National Osteoporosis Foundation www nof.org Electronically Signed: Dalton Jackson MD at 9:20 EDT ,
--- OUTSIDE RECORDS SUMMARY | 2023-11-20 11:10 | XMS RPT_ITS | CCD ---
Author Name Unknown Address Formerly [facility] [address] [place] [address] Organization [facility] Care Team Providers Care Senior Wealth Advisor Name Role Phone Tish Yeh MD [phone] Medications Completed/Discontinued Medications Medication Drug Class(es) Dates Sig (Normalized) Sig (Original) adalimumab (8 sources) Tumor Necrosis Factor Jean HUMIRA 40 MG/0.8ML K IT one injection q 2 weeks ADALIMUMAB [id number] Yahaira Woodward Problems Active Problems Problem Classification Problem Date Documented Da te Episodic/Chronic Asthma (8 sources) Asthma; Translations: [Unspecified asthma, uncomplicated] Onset: 6 12-05-2015 Chronic Disorders of lipid metabolism (8 sources) Hyperlipidemia; Translations: [Hyperlipidemia, unspecified] Onset: 6 12-05-2015 Chronic Esophageal disorders (8 sources) Gastroesophageal reflux disease; Translations: [Gastro-esophageal reflux disease without esophagitis] Onset: 6 12-05-2015 Chronic Essential hypertension (8 sources) Hypertensive disorder; Translations: [Essential (primary) hypertension] Onset: 6 12-05-2015 Chronic Immunity disorders (8 sources) Disorder involving the immune mechanism, unspecified; Translations: [Disorder involving the immune mechanism, unspecified] Onset: 2 11-05-2011 Chronic Nonmalignant breast conditions (8 sources) Fibrocystic disease of breast; Translations: [Diffuse cystic mastopathy of unspecified breast] 03-31-2013 Chronic Other gastrointestinal disorders (8 sources) Irritable bowel syndrome; Translations: [Irritable bowel syndrome without diarrhea] Onset: 6 12-05-2015 Chronic Regional enteritis and ulcerative colitis (8 sources) Crohn's disease; Translations: [Crohn's disease, unspecified, without complications] Onset: 2 11-05-2011 Chronic Unclassified (4 sources) Screening mammography ; Translations: [Encounter for screening mammogram for malignant neoplasm of breast] Onset: 7 07-16-2017 Past or Other Problems Problem Classification Problem Date Documented Da te Episodic/Chronic Menopausal disorders (4 sources) Decreased estrogen level; Translations: [Other primary ovarian failure] Onset: 07-16-2017 07-16-2017 Episodic Other bone disease and musculoskeletal deformities (8 sources) Osteopenia; Translations: [Other specified disorders of bone density and structure, unspecified site] Onset: 12-05-2015 12-05-2015 Episodic Other gastrointestinal disorders (8 sources) Incontinence of feces; Translations: [Full incontinence of feces] Onset: 06-19-2017 06-20-2017 Episodic Pneumonia (except that caused by tuberculosis or sexually transmitted disease) (8 sources) Pneumonia; Translations: [Pneumonia, unspecified organism] Onset: 12-05-2015 Resolved: 12-10-2015 12-05-2015 Episodic Results Test Name Value Interpretation Reference Range Facil ity Vital Signs Date Time Vital Sign Value Performing Clinician Pradeep malik 07-31-2017 15:59-0500 BMI (Body Mass Index) 25.02 kg/m2 Tish Yeh MD [facility] 07-31-2017 15:59-0500 BP Diastolic 78 mm[Hg] Tish Yeh MD [facility] 07-31-2017 15:59-0500 BP Systolic 135 mm[Hg] Tish Yeh MD [facility] 07-31-2017 15:59-0500 Height 158.75 cm Tish Yeh MD [facility] 07-31-2017 15:59-0500 Weight 63.05 kg Tish Yeh MD [facility] 07-03-2017 15:40-0400 BMI (Body Mass Index) 25.34 kg/m2 Tish Yeh MD [facility] 07-03-2017 15:40-0400 BP Diastolic 79 mm[Hg] Tish Yeh MD [facility] 07-03-2017 15:40-0400 BP Systolic 133 mm[Hg] Tish Yeh MD [facility] 07-03-2017 15:40-0400 Height 158.75 cm Tish Yeh MD [facility] 07-03-2017 15:40-0400 Pulse (Heart Rate) 68 /min Tish Yeh MD [facility] 07-03-2017 15:40-0400 Weight 63.87 kg Tish Yeh MD [facility] 06-19-2017 14:53-0400 BMI (Body Mass Index) 25.81 kg/m2 Tish Yeh MD [facility] 06-19-2017 14:53-0400 Body Temperature 98.2 [degF] Tish Yeh MD [facility] 06-19-2017 14:53-0400 BP Diastolic 71 mm[Hg] Tish Yeh MD [facility] 06-19-2017 14:53-0400 BP Systolic 147 mm[Hg] Tish Yeh MD [facility] 06-19-2017 14:53-0400 Height 158.75 cm Tish Yeh MD [facility] 06-19-2017 14:53-0400 Pulse (Heart Rate) 82 /min Tish Yeh MD [facility] 06-19-2017 14:53-0400 Respiratory Rate 16 /min Tish Yeh MD [facility] 06-19-2017 14:53-0400 Weight 65.05 kg Tish Yeh MD [facility] 06-19-2017 14:53-0400 Weight 65.04 kg Tish Yeh MD [facility] 12-05-2015 08:19-0400 BSA (Body Surface Area) 1.7 m2 Tish Yeh MD [facility] Plan of Treatment Date Care Activity Detail Author Start: 09-01-2017 End: 09-01-2017 Appointment Appointment [facility] Start: 07-31-2017 End: 07-31-2017 Appointment Appointment [facility] Start: 07-16-2017 End: 07-16-2017 Dxa bone density study 1/> sites axial skel Dual-energy X-ray absorptiometry (DXA), bone density study, 1 or more sites; [facility] Start: 07-16-2017 End: 07-16-2017 Mammogram, screening Mammogram, Screening, both breasts [facility] Start: 07-03-2017 End: 07-03-2017 Appointment Appointment [facility] Start: 12-05-2015 End: 12-05-2015 Chest x-ray X-Ray, Chest, PA & Lateral [facility] Summary Purpose Family History No Family History Records Found Advance Directives No Advanced Directives Records Found Additional Source Comments INFORMATION SOURCE (unrecogn ized section and content) FOR RECORDS PERTAINING TO PATIENTS WHO ARE OR HAVE BEEN ENROLLED IN A CHEMICAL DEPENDENCY/SUBSTANCEABUSE PROGRAM, SOME INFORMATION MAY BE OMITTED. This clinical summary was aggregated from multiple sources. Caution should be exercised in using it in the provision of clinical care. This summary normalizes information from multiple sources, and as a consequence, information in this document may materially change the coding, format and clinical context of patient data. In addition, data may be omitted in some cases. CLINICAL DECISIONS SHOULD BE BASED ON THE PRIMARY CLINICAL RECORDS. [employer] provides no warranty or guarantee of the accuracy or completeness of information in this document.
== END | disposition home or self-care (01) ==
LOC: OPBD 10:49
PROVIDERS: PCP Family Medicine; Referring Provider Obstetrics & Gynecology; Visit Provider Obstetrics & Gynecology
DX: Z01.419 Encounter for gynecological examination (general) (routine) without abnormal findings (principal); Z78.0 Asymptomatic menopausal state
CPT/HCPCS: 77080

== ENCOUNTER → 2023-12-01 | Outpatient (CLI) | payer MEDICARE, BC, SELFPAY ==
[2023-12-01 15:49] LABS: Absolute Lymphocyte Count 0.84 X10^3/uL (0.83-4.51); Absolute Neutrophil Count 0.5 X10^3/uL (2.0-7.7); Basophil# 0.01 X10^3/uL; Basophil% 0.7 % (0-1); Eosinophil# 0.06 X10^3/uL; Eosinophils% 4.1 % (0-5); Hematocrit 33.5 % (37-47); Hemoglobin 11.1 g/dL (12.0-15.0); Lymphocyte # 0.84 X10^3/ul (0.83-4.51); Lymphocyte % 57.9 % (19-41); Mean Corp Hgb Conc 33.1 g/dL (32-36); Mean Corpuscular Hgb 31.3 pg (27.0-32.0); Mean Corpuscular Volume 94.4 fL (81-99); Mean Platelet Vol. 10.8 fl (6.2-12.0); Monocyte# 0.05 X10^3/uL; Monocyte% 3.4 % (0-10); NRBC Flagged by Analyzer 0 % (0-5); Neutrophil # 0.48 X10^3/uL (2.7-7.7); Neutrophil % 33.2 % (47-70); POSITIVE COUNT YES; POSITIVE DIFFERENTIAL YES; POSITIVE MORPHOLOGY YES; Platelet Count 105 K/mm3 (150-450); RBC Distribution Width CV 14.4 % (11.6-14.6); RBC Distribution Width SD 49.6 fl (35.1-43.9); Red Blood Count 3.55 M/mm3 (4.2-5.4)
[2023-12-01 16:25] LABS: Differential Indicated SCAN CRITERIA MET
[2023-12-01 16:41] LABS: Anisocytosis RARE; Atypical Lymphocyte 1+ %; Differential Comment SEE COMMENTS; Macrocytosis RARE; Platelet Estimate SLT DEC (ADEQ); Reactive Lymphocyte RARE; Red Cell Morphology N CHROM NORMAL (NORM C&C)
[2023-12-01 16:42] LABS: Ovalocyte RARE
[2023-12-01 16:47] LABS: ALB/GLOB Ratio 0.9 RATIO (0.9-2.4); AST(SGOT) 21 U/L (15-37); Alanine Aminotransfer ALT/SGPT 16 U/L (13-56); Albumin, Serum 3.5 g/dL (3.2-5.0); Alkaline Phosphatase 68 U/L (45-117); Anion Gap 7 (5-15); BUN 12 mg/dL (7-18); BUN/Creat Ratio 15.7 RATIO (10-20); Calcium,Total 9.1 mg/dL (8.5-10.1); Chloride 101 mmol/L (98-107); Creatinine, Serum 0.76 mg/dL (0.55-1.02); EST Glomerular Filtration Rate 80 mL/min (>60); Est Glom Filt Rate - Afr Amer 97 mL/min (>60); Glucose 91 mg/dL (74-106); Potassium 3.9 mmol/L (3.5-5.1); Protein, Total 7.5 g/dL (6.4-8.2); Sodium Level 133 mmol/L (136-145)
[2023-12-01 19:24] LABS: White Blood Count 1.5 K/mm3 (4.4-11.0)
[2023-12-02 14:29] LABS: Pathologist Review Reviewed
== END | disposition home or self-care (01) ==
PROVIDERS: PCP Family Medicine; Referring Provider Internal Medicine Rheumatology; Visit Provider Internal Medicine Rheumatology
DX: L40.59 Other psoriatic arthropathy (principal); L40.8 Other psoriasis; Z79.899 Other long term (current) drug therapy
CPT/HCPCS: 36415; 80053; 85025

== ENCOUNTER 2023-12-17 07:37 | Outpatient (CLI) | payer MEDICARE, BC, SELFPAY ==
[2023-12-17] VITALS (15 sets, daily range): BP systolic 81–114; BP diastolic 33–82; PULSE 84–93; RESP 18; TEMP 36.3–36.4; O2SAT 94–100; BMI 28.3
--- NOTE | 2023-12-17 | IMM_PTH ---
PATIENT: LISSY MERCHANT LOC: CT U#:[id number] AGE/SX: 68/F ROOM: RE12/17/[address]: Dr. Luiz Davis MD : 1955 BED: DIS: 12/17/2023 SPEC #: [id number] RECD: 12/18/23 16:13 STATUS: SOUT REQ #: [id number] MARCIAL: 12/17/23 00:[address]: Luiz Davis DEPT: IMMUNOHISTOCHEMISTRY RECD BY: Edgar Thomson ENTERED: 12/18/23 16:15 SP TYPE: IMMUNO OTHR DR: Dr. Justin Dixon DO Tissues: A - Bone marrow of iliac crest B - Bone marrow of iliac crest Procedures: BCL-2 (add) BCL-6 (add) CD138 (add) CD20 (add) CD3 (add) CD34 (add) CD45 (add) CD5 (add) CD56 (add) CD79A (add) KAPPA (add) KI-67 (add) LAMBDA (add) P53 (add) Pankeratin (initial) PHYSICIAN & [address] [address] SPECIMEN INFORMATION: Tissue Source: A. Bone marrow core, B- Bone marrow clot Clinical Info: Thrombocytopenia Specimen Number: [id number] CPT code: 88297o7,70720x64 METHODOLOGY: Deparaffinized sections of prefer/formalin-fixed tissue or PAP/DQ stained slides are incubated with monoclonal/polyclonal antibodies/oligonucleotide probes. Localization is made via biotin free immunoperoxidase method. Appropriate controls are performed and reacted as expected. Results on target cell population are indicated in the following table: RESULTS: ANTIBODY / CLONE RESULT Block A AE1-3 (AE1/AE3/PCK26) negative CD3 (PS1) positive CD5 (SP10) positive CD20 (L26) negative CD45 (RP2/18) positive CD79a (11E3) positive CD138 (B-A38) positive BCL-2 (bcl-2/100/D5) positive BCL-6 (ZD960S/A8) negative CD34 (QBEnd-10) negative CD56 (123C3.D5) negative P53 (DO-7) negative, null pattern Ki-67 (30-9) positive Lacoste (polyclonal) negative Lambda (polyclonal) negative Block B AE1-3 (AE1/AE3/PCK26) negative CD3 (PS1) positive CD5 (SP10) positive CD20 (L26) positive CD45 (RP2/18) positive CD79a (11E3) positive CD138 (B-A38) positive BCL-2 (bcl-2/100/D5) positive BCL-6 (OJ704S/A8) negative CD34 (QBEnd-10) negative CD56 (123C3.D5) negative P53 (DO-7) negative, null pattern Ki-67 (30-9) positive Lacoste (polyclonal) negative Lambda (polyclonal) negative These tests were developed and their performance characteristics determined by [facility]. They may not have been cleared or approved by the U.S. Food and Drug Administration. The FDA has determined that such clearance or approval is not necessary. The above immunohistochemical/dualISH markers are ordered and reviewed by the Pathologist. INTERPRETATION: A. Bone marrow core: Polytypic lymphoid aggregates. B. Bone marrow clot: Polytypic lymphoid aggregates. AM/mr 12/22/23 A&B Comment: Plasma cells are mildly increased. Clinical correlation necessary. Case has been reviewed in consultation with Dr. Pastor who concurs with the above diagnosis. IDC:[id number]
--- NOTE | 2023-12-17 | BMB_PTH ---
PATIENT: LISSY MERCHANT LOC: CT U#:[id number] AGE/SX: 68/F ROOM: RE12/17/[address]: Dr. Luiz Davis MD : 1955 BED: DIS: 12/17/2023 SPEC #: [id number] RECD: 12/17/23 10:14 STATUS: JAYLIN REMariana #: [id number] MARCIAL: 12/17/23 00:[address]: Luiz Davis DEPT: BONE MARROW RECD BY: Latricia Rico ENTERED: 12/17/23 10:15 SP TYPE: BMB LIZET DR: Dr. Justin Dixon DO Tissues: A - Bone marrow, NOS B - Bone marrow, NOS C - Bone marrow, NOS Procedures: Decalcification bone/plaque Bone Marrow Aspiration Bone Marrow Core Biopsy Iron Stain Bone Marrow HEADER OPERATION: Bone marrow biopsy PRE-OP DIAGNOSIS: Thrombocytopenia TISSUE SUBMITTED: A - Core, B - Clot, C - Smears, and send outs (flow, cytogenetics) BONE MARROW DIAGNOSIS Bone marrow biopsy, clot, aspiration: Dysmegakaryopoesis. Non progressive maturation of granulocytes (decreased mature granulocytes) Mildly increased plasma cell population, approximately 5% Microscopic polytypic lymphoid aggregates in core and clot sections Peripheral normocytic anemia. See comment. AM/mr 12/23/23 COMMENT Immunohistochemistry ([id number]) shows a mildly increased polytypic plasma cell population (approximately 5%). No increased blast population is identified. Flow cytometric analysis, FISH and cytogenetics are pending and the results from these studies will be reported as addendums. Case has been reviewed in consultation with Dr. Pastor who concurs with the above diagnosis. IDC:SJ BONE MARROW STUDY Slides are reviewed. CBC DATE: 12/17/23 WBC 0.98; RBC 3.24; HGB 10.1; HCT 30.5; MCV 94.1; RDW 49.6; PLTS 148,000 SEGS 39.7%; LYMPHS 53.1%; MONOS 3.1%; EOS 4.1%; BASOS 0% PERIPHERAL SMEAR: Submitted. RBC: Normocytic anemia WBC: Occasional reactive lymphocytes PLTS: Normomorphic BONE MARROW ASPIRATE DIFFERENTIAL: Markedly hemodiluted aspirate with rare spicules. No increased blasts. ASPIRATE FINDINGS: Markedly hemodiluted aspirate with rare spicules. No increased blasts. CORE BIOPSY FINDINGS: Site: Not specified Adequacy: Adequate Cellularity %: 45% M/E ratio: within normal limits but with decreased mature granulocytes. Megakaryocytes: Atypical and dysplastic forms present Bony trabeculae: Within normal limit Granulomas: Not identified. Lymphoid aggregate(s): Microscopic and polytypic Atypical infiltrate(s): Not identified. Comment: Granulocytic maturation is not progressive (Mature forms decreased). Mildly increased polytypic plasma cell population (appx.5%) by Immunohistochemistry. ASPIRATE CLOT FINDINGS: Site: Not specified Marrow Particles: Many Cellularity: 45% M/E ratio: Within normal limits Megakaryocytes: Clustering of megakaryocytes with dysplastic forms Granuloma(s): Not identified Lymphoid aggregate(s): Present. Microscopic and polytypic by immunohistochemistry. Atypical infiltrate(s):Not identified. Comment: Granulocytic maturation is not progressive (Mature forms decreased). Mildly increased polytypic plasma cell population (appx.5%) by Immunohistochemistry. SPECIAL STAINS (with matched controls): Iron: Stainable iron is present Reticulin: Within normal limit PAS: Highlights myeloid elements and megakaryocytes. BONE MARROW GROSS A - Received is a container labeled with the patient's name and designated Bone marrow. The specimen consists of a piece of betancur bone measuring in aggregate 1.0 x 0.5 x 0.1 cm. The specimen is totally submitted in one cassette after decalcification. B - Received labeled with the patient's name and designated Bone marrow is a specimen that consists of approximately 1 ml of bloody fluid that on filtration yields multiple minute fragments of blood clots measuring in aggregate 2.5 x 1.0 x 0.1 cm. The specimen is totally submitted in one cassette. C - Also received are 14 unstained and 1 peripheral stained slides. The unstained slides are submitted for appropriate staining. Also received are 1 green top tubes which are sent to our reference lab for Flow, Cytogenetics, AML, MDS. GUIDO/mr 12/17/23 TC:0 CPT: 02675, 68665, 82895 x2, 17420 x3, 05369 ADDENDUM ADDENDUM ADDENDUM ADDENDUM ADDENDUM ADDENDUM ADDENDUM ADDENDUM ADDENDUM ADDENDUM ADDENDUM ADDENDUM ADDENDUM ADDENDUM ADDENDUM ADDENDUM ADDENDUM ADDENDUM ADDENDUM ADDENDUM ADDENDUM ADDENDUM ADDENDUM ADDENDUM ADDENDUM ADDENDUM ADDENDUM ADDENDUM ADDENDUM ADDENDUM ADDENDUM ADDENDUM 12/26/2023 12:08 ADDENDUM 12/26/2023 12:08 ADDENDUM 12/26/2023 12:08 ADDENDUM 12/26/2023 12:08 ADDENDUM 12/26/2023 12:08 FLOW CYTOGENETIC STUDY: Flow cytometric analysis reveals a 16% myeloblasts population and an abnormal lymphocyte T-cell phenotype. The increased myoblasts population could indicate an acute leukemia or high-grade myeloid neoplasm. The significance of the abnormal T-cell lymphocytes is unclear. Immunophenotype plasma cells compromised <1% of the population. The MDS FISH panel is normal (negative). The AML FISH panel is normal (negative). The complete FISH, cytogenetic and flow cytometric analyses are viewable in EMR. CYTOGENETICS REPORT FROM [facility] CYTOGENETIC RESULT: No mitotic activity INTERPRETATION: No result MDS FISH PANEL: Normal MDS panel INTERPREATAITON: Negative AML FISH PANEL: Normal AML panel INTERPREATION: Negative Please see complete report in e-chart or EMR
[2023-12-17 07:56] LABS: Absolute Lymphocyte Count 0.52 X10^3/uL (0.83-4.51); Absolute Neutrophil Count 0.4 X10^3/uL (2.0-7.7); Eosinophil# 0.04 X10^3/uL; Eosinophils% 4.1 % (0-5); Hematocrit 30.5 % (37-47); Hemoglobin 10.1 g/dL (12.0-15.0); Lymphocyte # 0.52 X10^3/ul (0.83-4.51); Lymphocyte % 53.1 % (19-41); Mean Corp Hgb Conc 33.1 g/dL (32-36); Mean Corpuscular Hgb 31.2 pg (27.0-32.0); Mean Corpuscular Volume 94.1 fL (81-99); Mean Platelet Vol. 8.6 fl (6.2-12.0); Monocyte# 0.03 X10^3/uL; Monocyte% 3.1 % (0-10); NRBC Flagged by Analyzer 0 % (0-5); Neutrophil # 0.39 X10^3/uL (2.7-7.7); Neutrophil % 39.7 % (47-70); POSITIVE COUNT YES; POSITIVE DIFFERENTIAL YES; Platelet Count 148 K/mm3 (150-450); RBC Distribution Width CV 14.3 % (11.6-14.6); RBC Distribution Width SD 49.6 fl (35.1-43.9); Red Blood Count 3.24 M/mm3 (4.2-5.4)
[2023-12-17 07:58] LABS: Differential Indicated SCAN CRITERIA MET
[2023-12-17 08:15] LABS: International Normalized Ratio 1.4; Prothrombin Time (Protime)PT. 17.1 SECONDS (11.7-14.9)
[2023-12-17 08:17] LABS: Partial Thromboplast Time 52.3 Seconds (24.1-36.2)
[2023-12-17] MEDS: fentaNYL 100 MCG/2 ML Ampul IV ×3 (08:55→09:10)
[2023-12-17] MEDS: Midazolam 2 MG/2 ML Syringe IV ×2 (08:55→09:05)
[2023-12-17] MEDS: 0.9% Normal Saline (250mL Bag) 250 ML 15 ML IV (08:55)
[2023-12-17] MEDS: Lidocaine 2% (20 ml mdv) 20 ML Vial INFILT (09:00)
--- NOTE | 2023-12-17 10:28 | PRO.PCM_ITS ---
Procedure Report Date of Procedure: 12/17/23 Assessment & Plan Assessment/Plan (1) Anemia: QUALIFIERS: Anemia type: unspecified type Qualified Code(s): D64.9 - Anemia, unspecified PLAN: PROCEDURE: CT guided bone marrow biopsy and aspiration of the right iliac bone ORDERING PROVIDER: Dr. Davis INDICATION: Female, 68 years old. Anemia. PROVIDER: Chrissy Good STATION WORKER-NUCLEAR REACTOR ENGINEER RADIATION DOSAGE (If Supplied By Facility): CTDIvol = 17.72 mGy, DLP = 427.86 mGycm. Individualized dose optimization techniques were utilized. CONSENT: The risks, benefits, and alternatives to the procedure were explained to the patient. The specific risk of hemorrhage requiring further treatment or intervention was detailed and accepted. Follow-up instructions were discussed with the patient as well. Written informed consent was obtained. PRE-PROCEDURE SEDATION ASSESSMENT: Current history and physical dictated by referring physician and reviewed. No clinical changes since date of exam. Patient has an ASA Class of 2. PROCEDURAL SEDATION PROTOCOL: The Drugs used were: 4 mg Versed, IV, and 100 mcg Fentanyl, IV. The sedation time was: 30 minutes, starting at 8:55 AM and terminated at 9:25 AM. The procedural sedation protocol was independently monitored by the department nurse. TECHNIQUE The patient was brought into the CT suite and placed in the prone position. An appropriate entry site was identified. The overlying skin was prepped and draped in the usual sterile fashion. 2% lidocaine was administered subcutaneously for local anesthesia. Under CT guidance, a bone marrow biopsy and bone marrow aspirate were performed of the right iliac bone using an 11-gauge bone marrow biopsy kit. Hematology staff was present to prepare the specimen slides and transport the specimen to the laboratory for analysis. Hemostasis was obtained, and a sterile occlusive dressing was applied. The patient tolerated the procedure well without immediate complications. IMPRESSION: Successful CT guided bone marrow biopsy and aspiration of the right iliac bone as described. Procedural Sedation protocol utilized with independent monitoring by the department nurse. Procedures Radiology Radiology CT Procedures: 21082 Biopsy Bone Marrow
[2023-12-18 09:41] LABS: Pathologist Review Reviewed
[2024-01-18 15:59] LABS: Miscellaneous Lab Procedure SEE PATHOLOGY REPORT
[2024-01-18 16:42] LABS: Miscellaneous Lab Procedure 2 SEE PATHOLOGY REPORT; Miscellaneous Lab Procedure 3 SEE PATHOLOGY REPORT
[2024-01-18 16:43] LABS: Miscellaneous Lab Procedure 4 SEE PATHOLOGY REPORT
== END 2023-12-17 23:59 | disposition home or self-care (01) ==
PROVIDERS: PCP Family Medicine; Referring Provider Internal Medicine Medical Oncology; Visit Provider Internal Medicine Medical Oncology
DX: D69.6 Thrombocytopenia, unspecified (principal); D70.9 Neutropenia, unspecified; I65.22 Occlusion and stenosis of left carotid artery
CPT/HCPCS: 38222; 36415; 77012; 85025; 85610; 85730; 88305; 88307; 88311; 88313; 88341; 88342; 99156; 99157; J7050; A4216

== ENCOUNTER → 2023-12-23 | Outpatient (CLI) | payer MEDICARE, BC, SELFPAY ==
--- NOTE | 2023-12-23 07:08 | US_ITS ---
STUDY: ABDOMINAL ULTRASOUND - RIGHT UPPER QUADRANT; ELASTOGRAPHY REASON FOR VISIT: Female, 68 years old. Elevated bilirubin. TECHNIQUE: Ultrasound evaluation of the right upper quadrant was performed with real-time and static perez-scale imaging. Point quantification shear wave elastography was performed ([employer]). TECHNICAL QUALITY: Adequate. COMPARISON: None. FINDINGS: Liver: The liver measures 15.7 cm. There is increased echogenicity consistent with fatty infiltration. The bile ducts are within normal limits. There is hepatic color flow. The direction of portal flow is hepatopetal. There is no demonstrated mass lesion. Median liver stiffness measured 4.9 kPa. Gallbladder: Normal distended gallbladder. The gallbladder wall measures 1.9 mm. There is a negative sonographic Serra''s sign. There is no pericholecystic fluid. There are multiple echogenic structures within the gallbladder, consistent with multiple gallstones. Common Bile Duct (C.B.D.): The common bile duct measures 7 mm. Pancreas: There is normal echogenicity of the visualized pancreas. There is no demonstrated pancreatic mass or cyst. Right Kidney: Normal size of the right kidney. The right kidney measures 10.6 cm x 5.7 cm x 3.8 cm. Normal renal cortex. The right cortex measures 1.3 cm. There is no demonstrated renal mass or cyst. There is no right hydronephrosis. US/ABD Limited w/ Elastography IMPRESSION: 1. Liver stiffness measures 4.9 kPa compatible with F0-F1 (Normal to mild liver fibrosis) Metavir score. 2. Multiple gallstones. 3. Fatty infiltration of the liver. Electronically Signed: Dalton Jackson MD at 10:55 EDT ,
== END | disposition home or self-care (01) ==
LOC: US 07:07
PROVIDERS: PCP Family Medicine; Referring Provider Internal Medicine Medical Oncology; Visit Provider Internal Medicine Medical Oncology
DX: R17 Unspecified jaundice (principal)
CPT/HCPCS: 76705; 76981

== ENCOUNTER → 2023-12-31 | Outpatient (CLI) | payer MEDICARE, BC, SELFPAY ==
--- NOTE | 2023-12-31 12:33 | VDLE_ITS ---
Reason For Study: f/u DVT, LLE, EDEMA AND ERYTHEMA RIGHT LEFT CFV is compressible, spontaneous, phasic, GSV is normal. competent and demonstrates normal CFV is compressible, spontaneous, phasic, augmentation. competent, and demonstrates normal Procedure augmentation. This is a venous duplex using B-mode, color FV is compressible, spontaneous, phasic, flow and spectral Doppler. competent and demonstrates normal Exam performed in department. augmentation. The exam was diagnostic. POP V is compressible, spontaneous, phasic, A preliminary report was called and/or faxed competent and demonstrates normal to Joann Ga NPC. augmentation. T/P Trunk is compressible. PTV is compressible. LT PerV is compressible. VL/Venous Duplex US, Unilateral Interpretation Summary Deep veins of the left lower extremity are patent and compressible segmentally. There is no evidence of left lower extremity deep vein thrombosis. The left great saphenous vein kandice ears patent and compressible segmentally. Ordering Physician: Joann Ga Referring Physician: Justin Dixon Performed By: Amanda Lai RVT and Student
== END | disposition home or self-care (01) ==
LOC: CVS 12:32
PROVIDERS: PCP Family Medicine; Referring Provider Nurse Practitioner Family; Visit Provider Nurse Practitioner Family
DX: R60.0 Localized edema (principal)
CPT/HCPCS: 93971

== ENCOUNTER → 2024-01-02 | Outpatient (CLI) | payer MEDICARE, BC, SELFPAY ==
--- NOTE | 2024-01-02 11:08 | MRI_ITS ---
Abdominal MRI and MRCP without contrast 01/02/2024 11:26 AM COMPARISON: None CLINICAL HISTORY: ABNORMAL LFT -- . TECHNIQUE: Multiplanar and multisequence MR images of the abdomen were obtained with MRCP sequence. Three-dimensional post-processing reconstructions were performed. FINDINGS: Liver: There is hepatic steatosis. No evidence of cirrhosis. Gallbladder: Few small T2 dark stones in the gallbladder. Bile Ducts: Unremarkable Pancreas: Unremarkable Spleen: Unremarkable Adrenal Glands: Unremarkable Kidneys: Unremarkable GI Tract: Unremarkable Lymphadenopathy: Absent Ascites: Absent Bones: No suspicious lesions MRI/MRCP Abdomen without Contrast IMPRESSION: Hepatic steatosis without evidence of cirrhosis. Cholelithiasis. Electronically Signed: Octavio Styles MD at 17:43 EDT ,
== END | disposition home or self-care (01) ==
LOC: MRI 10:53
PROVIDERS: PCP Family Medicine; Referring Provider Internal Medicine Medical Oncology; Visit Provider Internal Medicine Medical Oncology
DX: R79.89 Other specified abnormal findings of blood chemistry (principal)
CPT/HCPCS: 74181

== ENCOUNTER → 2024-02-03 | Outpatient (CLI) | payer MEDICARE, BC, SELFPAY ==
--- NOTE | 2024-02-03 13:22 | VDLE_ITS ---
Reason For Study: BLE Swelling RIGHT LEFT GSV is normal. GSV is normal. CFV is compressible, spontaneous, phasic, CFV is compressible, spontaneous, phasic, competent and demonstrates normal competent, and demonstrates normal augmentation. augmentation. FV is compressible, spontaneous, phasic, FV is compressible, spontaneous, phasic, competent and demonstrates normal competent and demonstrates normal augmentation. augmentation. POP V is compressible, spontaneous, phasic, POP V is compressible, spontaneous, phasic, competent and demonstrates normal competent and demonstrates normal augmentation. augmentation. T/P Trunk is compressible. T/P Trunk is compressible. PTV is compressible. PTV is compressible. RT PerV is compressible. LT PerV is compressible. Procedure This is a venous duplex using B-mode, color flow and spectral Doppler. Exam performed in department. The exam was diagnostic. A preliminary report was called and/or faxed to Dr. Dixon's office. VL/Venous Duplex US - Vitor Extrem Interpretation Summary Deep veins of the lower extremities are bilaterally patent and compressible seg mentally. There is no evidence of deep vein thrombosis on either side. Valvular competence appears in tact within the proximal deep venous systems bilaterally. The great saphenous veins appear bila terally patent and compressible segmentally. Ordering Physician: Justin Dixon Referring Physician: Justin Dixon Performed By: Wesley Weiner, RVT
== END | disposition home or self-care (01) ==
LOC: CVS 13:21
PROVIDERS: PCP Family Medicine; Referring Provider Family Medicine; Visit Provider Family Medicine
DX: M79.604 Pain in right leg (principal); M79.605 Pain in left leg; R60.0 Localized edema
CPT/HCPCS: 93970

== ENCOUNTER → 2024-06-21 | Outpatient (CLI) | payer MEDICARE, BC, SELFPAY ==
--- NOTE | 2024-06-21 14:31 | STRESSREP ---
Stress Test Report Pharmacologic myocardial perfusion stress test. 68-year-old lady with a history of abnormal EKG patient with a history of leukemia Resting EKG demonstrates sinus rhythm with premature ventricular complexes with a rate of 87 bpm. Resting blood pressure is 110/70 mmHg. 0.4 mg of regadenoson was infused per usual protocol followed by rapid intravenous saline flush injection. Continuous EKG monitoring was performed. The maximum heart rate was 100 bpm which was 65 of max impacted heart rate the maximum workload was 1 metabolic equivalent. At rest there were no ST or T wave changes noted to suggest ischemia and at peak infusion nonspecific ST changes were noted which did not meet the criteria for ischemia. No clinical angina is noted. The final blood pressure was 108/62 mmHg. Myocardial perfusion protocol. 11.4 mCi of technetium 99m sestamibi was injected at rest. 0.4 mg of regadenoson was infused per usual protocol. At peak infusion 33.8 mCi of technetium 99m sestamibi was injected stress images were obtained stress and rest images were reconstructed and compared in the short axis vertical long and horizontal long axis. Gated images were also obtained. Perfusion SPECT analysis: Review of the stress images demonstrate normal uptake of tracer noted in all areas of the myocardium. There is an area in the basal inferior wall with reduced perfusion and the resting images similar demonstrated normal uptake of tracer noted in all areas of the myocardium. The basal inferior wall has reduced perfusion. No areas of reversibility are noted to suggest ischemia. Previous basal inferior wall infarct cannot be completely excluded Gated SPECT analysis: The gated ejection fraction is 55%. Conclusion: Normal pharmacologic myocardial perfusion stress test. Preserved ejection fraction.
== END | disposition home or self-care (01) ==
PROVIDERS: PCP Family Medicine; Referring Provider Internal Medicine Hematology & Oncology; Visit Provider Internal Medicine Hematology & Oncology
DX: R94.31 Abnormal electrocardiogram [ECG] [EKG] (principal); C92.00 Acute myeloblastic leukemia, not having achieved remission; I25.2 Old myocardial infarction
CPT/HCPCS: 78452; 93017; A9500; A4216; J2785

== ENCOUNTER → 2024-11-30 | Outpatient (CLI) | payer MEDICARE, BC, SELFPAY ==
--- NOTE | 2024-11-30 10:00 | BI_ITS ---
PROCEDURE: SCRN MAMM (CAD)W/JAE BILAT REASON FOR EXAM: F, Age 69 y/o , SCREEN FOR BREAST CANCER. No family history of breast cancer. TECHNIQUE: Bilateral screening digital breast tomosynthesis with 2D and 3D images. Computer aided detection. COMPARISON: 10/30/2023, 10/07/2022, 10/05/2021. FINDINGS: The breasts are heterogeneously dense which may obscure small masses. The mammogram demonstrates that the patient has dense breasts. Supplemental screening with whole breast ultrasound or MRI may be considered for further evaluation. No suspicious masses, areas of developing architectural distortion, or suspicious calcifications. BI/SCRN MAMM (CAD)W/JAE BILAT IMPRESSION: There is no mammographic evidence of malignancy. BI-RADS 1: NEGATIVE. RECOMMEND ANNUAL MAMMOGRAPHIC SCREENING. Follow-up code: Routine Follow-up The patient will be notified of the results by letter. Reading Location: [id number]
== END | disposition home or self-care (01) ==
LOC: OPBI 09:47
PROVIDERS: PCP Family Medicine; Referring Provider Obstetrics & Gynecology; Visit Provider Obstetrics & Gynecology
DX: Z12.31 Encounter for screening mammogram for malignant neoplasm of breast (principal)
CPT/HCPCS: 77063; 77067

== ENCOUNTER 2025-02-01 19:42 | Emergency (ER) | payer MEDICARE, BC, SELFPAY ==
[2025-02-01] VITALS (7 sets, daily range): BP systolic 124–177; BP diastolic 44–73; PULSE 66–80; RESP 20–23; TEMP 36.6–36.8; O2SAT 96–98; BMI 24.2
--- NOTE | 2025-02-01 20:53 | CT_ITS ---
PROCEDURE: BRAIN/HEAD WITHOUT CONTRAST 02/01/2025 REASON FOR EXAM: DIZZINESS TECHNIQUE: Head CT without intravenous contrast. Coronal and Sagittal reconstruction series were provided. One or more dose reduction techniques were used (e.g., Automated exposure control, adjustment of the mA and/or kV according to patient size, use of iterative reconstruction technique. RADIATION DOSE SUMMARY: DLP: 779.24 mGycm COMPARISON: None. FINDINGS: Brain: Normal CSF Spaces: Normal Sinuses/Mastoids: Clear at visualized levels Bones: No evidence of acute fracture. CT/Brain/Head without Contrast IMPRESSION: NO ACUTE FINDINGS Reading Location: [id number]
--- NOTE | 2025-02-01 20:53 | EKG12_ITS ---
Test Reason : DIZZY Blood Pressure : */* mmHG Vent. Rate : 69 BPM Atrial Rate : 69 BPM P-R Int : 144 ms QRS Dur : 90 ms QT Int : 422 ms P-R-T Axes : 59 1 70 degrees QTcB Int : 452 ms Sinus rhythm with occasional Premature ventricular complexes Otherwise normal ECG Confirmed by BRYAN MASSEY, THEODORA ([id number]), marketing editor NABEEL VICTORIA ([id number]) on 02/02/2025 10:37:35 AM Referred By: Confirmed By: THEODORA ADAMS MD
--- NOTE | 2025-02-01 20:53 | EX.ED.DYSGE1 ---
HPI History of Present Illness Chief Complaint: Dizziness Informant: patient Onset/Context/Timing Onset: Today Context: Sudden Onset Timing: Continuous Quality: Off balance Location: Generalized Worsened by: Turning her head Relieved by: Nothing Narrative Narrative: Patient presents with dizziness that began today. Patient states it began rather suddenly. Patient states she feels off balance and lightheaded. Patient states this is worse when she turns her head. Patient states that she started having some nausea and vomiting after the dizziness started. Patient states she feels her heart racing. Patient denies any blurry vision or double vision. Patient admits to a mild headache. Patient denies any fevers or chills. [facility] Medical History Acute myeloid leukemia Wears glasses DVT (deep venous thrombosis) Hypertension Migraines Anemia Neutropenia Hypertension Left carotid artery stenosis Osteopenia Psoriatic arthritis Myocardial infarction Osteoarthritis Frequent headaches Arthritis Osteopenia COPD (chronic obstructive pulmonary disease) B12 deficiency Takotsubo syndrome Abnormal stress test GERD (gastroesophageal reflux disease) Hyperlipidemia IBS (irritable bowel syndrome) Crohns disease Asthma Fecal incontinence Home Medications ?Medication ?Instructions ?Recorded ?Last Taken ?Type atorvastatin 40 mg tablet 40 mg PO QDAY 03/25/18 Unknown History albuterol 90 mcg/actuation aerosol 90 mcg inhalation Q4H PRN PRN 12/09/23 Unknown History inhaler wheezing cholecalciferol (vitamin D3) 10 20 mcg PO DAILY 12/09/23 Unknown History mcg (400 unit) capsule pantoprazole 40 mg tablet,delayed 40 mg PO DAILY 12/09/23 12/17/23 History release acyclovir 400 mg tablet 400 mg PO BID Shingles prevention 06/24/24 Unknown History allopurinol 300 mg tablet 300 mg PO DAILY AML 06/24/24 Unknown History azacitidine 100 mg solution for mg subcut Acute myeloid leukemia 06/24/24 Unknown History injection (Vidaza) duloxetine 60 mg capsule,delayed 60 mg PO DAILY Joint pain 06/24/24 Unknown History release folic acid 1 mg tablet 1,000 mcg PO DAILY 06/24/24 Unknown History isavuconazonium sulfate 186 mg 372 mg PO QDAY 06/24/24 Unknown History capsule (Cresemba) ivosidenib 250 mg tablet (Tibsovo) 500 mg PO DAILY Acute myeloid 06/24/24 Unknown History leukemia loperamide 2 mg capsule 4 mg PO BID Bowel problems 06/24/24 Unknown History magnesium chloride 71.5 mg 84 mg PO TID 06/24/24 Unknown History (magnesium chloride) tablet,delayed release (Slow-Mag) ondansetron 8 mg disintegrating 8 mg PO DAILY Nausea from chemo 06/24/24 Unknown History tablet potassium chloride 10 mEq 20 meq PO DAILY Low potassium 06/24/24 Unknown History capsule,extended release amlodipine 5 mg tablet 5 mg PO DAILY 02/01/25 Unknown History famotidine 40 mg tablet 40 mg PO BID 02/01/25 Unknown History letermovir 480 mg tablet (Prevymis) 480 mg PO DAILY 02/01/25 Unknown History lidocaine-prilocaine 2.5 %-2.5 % topical 02/01/25 Unknown History topical cream magnesium L-lactate 84 mg 168 mg PO TID 02/01/25 Unknown History tablet,extended release metoprolol succinate 25 mg 25 mg PO DAILY 02/01/25 Unknown History tablet,extended release 24 hr ondansetron HCl 8 mg tablet 8 mg PO TID 02/01/25 Unknown History sucralfate 1 gram tablet 1 g PO 4X/DAY 02/01/25 Unknown History sulfamethoxazole 800 1 tab PO 02/01/25 Unknown History mg-trimethoprim 160 mg tablet meclizine 25 mg tablet 25 mg PO 4X/DAY PRN PRN Dizziness 02/02/25 Unknown Rx #20 tabs Allergy/AdvReac Type Severity Reaction Status Date / Time hydrochlorothiazide AdvReac Severe hypokalemia Verified 02/01/25 19:46 and hyponatremia methotrexate AdvReac All blood Verified 02/01/25 19:46 cells low Family History Mother Diabetes Father Hypertension Surgical History History of bowel resection History of tubal ligation History of cardiac catheterization (~04/10/18) History of total hysterectomy Hx of appendectomy H/O knee surgery Social History Smoking Status: Never smoker alcohol intake: current substance use type: does not use caffeine: Yes what type of physical activity do you participate in: walking frequency: daily seatbelt use: always do you feel safe at home: Yes additional social history: [employer] retired on 08/09/2020! ROS ROS ED Constitutional Constitutional ED: Denies chills or fever(s) Eyes Eyes: Denies blurry vision or change in vision ENT ENT ED: Denies rhinorrhea or sore throat Cardiovascular Cardiovascular: Reports racing heartbeat; Denies chest pain or palpitations Respiratory/Chest Respiratory/Chest: Denies cough or dyspnea Gastrointestinal Gastrointestinal: Reports nausea and vomiting Genitourinary Genitourinary ED: Denies dysuria or hematuria Musculoskeletal Musculoskeletal: Denies back pain or neck pain Integumentary Denies abscess or rash Neurologic Neurologic: Reports headache(s); Denies weakness Allergic/Immunologic Allergic/Immunologic ED: Denies mouth swelling or urticaria EXAM Physical Exam Const Vital Signs: 02/01/25 19:47 02/01/25 19:51 02/01/25 20:51 Temperature 98.2 F 98.2 F 97.8 F Temperature Source Oral Oral Oral Pulse Rate 79 76 71 Pulse Rate [Lying] Pulse Rate [Sitting (for 1 minute prior to obtaining)] Pulse Rate [Standing (for 1 minute prior to obtaining)] Respiratory Rate 22 H 22 H 23 H Blood Pressure 152/73 H 152/73 H 135/50 H Blood Pressure [Lying] Blood Pressure [Sitting (for 1 minute prior to obtaining)] Blood Pressure [Standing (for 1 minute prior to obtaining)] Blood Pressure Mean 99 99 78 Blood Pressure Mean [Lying] Blood Pressure Mean [Sitting (for 1 minute prior to obtaining)] Blood Pressure Mean [Standing (for 1 minute prior to obtaining)] Pulse Ox 98 97 97 Oxygen Delivery Method Room Air Room Air Room Air 02/01/25 21:00 02/01/25 21:08 02/01/25 22:00 Temperature 97.8 F 97.8 F Temperature Source Oral Oral Pulse Rate 71 70 Pulse Rate [Lying] 73 Pulse Rate [Sitting (for 1 minute prior to obtaining)] 80 Pulse Rate [Standing (for 1 minute prior to obtaining)] 80 Respiratory Rate 23 H 22 H Blood Pressure 135/50 H 136/63 H Blood Pressure [Lying] 177/70 H Blood Pressure [Sitting (for 1 minute prior to obtaining)] 125/49 H Blood Pressure [Standing (for 1 minute prior to obtaining)] 124/44 H Blood Pressure Mean 78 87 Blood Pressure Mean [Lying] 105 Blood Pressure Mean [Sitting (for 1 minute prior to obtaining)] 74 Blood Pressure Mean [Standing (for 1 minute prior to obtaining)] 70 Pulse Ox 97 96 Oxygen Delivery Method Room Air Room Air 02/01/25 23:00 02/02/25 00:00 Temperature Temperature Source Pulse Rate 66 70 Pulse Rate [Lying] Pulse Rate [Sitting (for 1 minute prior to obtaining)] Pulse Rate [Standing (for 1 minute prior to obtaining)] Respiratory Rate 20 H 17 Blood Pressure 130/51 H 144/62 H Blood Pressure [Lying] Blood Pressure [Sitting (for 1 minute prior to obtaining)] Blood Pressure [Standing (for 1 minute prior to obtaining)] Blood Pressure Mean 77 89 Blood Pressure Mean [Lying] Blood Pressure Mean [Sitting (for 1 minute prior to obtaining)] Blood Pressure Mean [Standing (for 1 minute prior to obtaining)] Pulse Ox 98 Oxygen Delivery Method Room Air Positive well nourished and well developed General Appearance ED: well developed and NAD HEENT Reports moist mucous membranes Eyes PERRL and EOMs intact bilaterally Eyes Narrative: There is mild nystagmus with right lateral gaze. Neck supple and no JVD Resp normal respiratory effort and clear to auscultation bilaterally Cardio regular rate and regular rhythm GI non-tender and non-distended Palpation: soft Extremity normal to inspection Neuro oriented x3, CN's II-XII intact bilaterally and no sensory deficits noted Sensorium / Orientation: alert Motor Exam: strength 5/5 throughout Psych mental status grossly normal MDM MDM MDM Narrative Medical decision making narrative: Differential diagnose includes vertigo, labyrinthitis, dehydration, electrolyte abnormality, stroke, intracranial bleeding, urinary tract infection, pneumonia, bronchitis, and viral illness. CT scan of the brain will be obtained to assess for intracranial bleeding and stroke. Chest x-ray will be obtained to assess for pneumonia or bronchitis. EKG will be obtained to assess for cardiac dysrhythmia and cardiac ischemia. CBC will be obtained to assess for leukocytosis and anemia. Basic metabolic profile will be obtained to assess for electrolyte abnormality and renal function. Urinalysis will be obtained to assess for urinary tract infection and hematuria. High-sensitivity troponin will be obtained to assess for cardiac ischemia. History & Record Review Additional record(s) reviewed:: Prior outpatient record and Prior labs Lab Data Attestation: I reviewed the patient's lab results. Lab results narrative: CBC was reviewed. There is a moderate anemia with a hemoglobin of 11.3 and hematocrit of 33.1. The remainder is within normal limits. Basic metabolic profile was reviewed. Sodium slightly low at 129 and potassium was low at 3.0. Glucose was slightly elevated at 140. The remainder was within normal limits. High-sensitivity troponin was reviewed and was normal at 11. Urinalysis was reviewed. There is no evidence of urinary tract infection or hematuria. Labs: Laboratory Results - last 24 hr 02/01/25 02/01/25 02/01/25 20:55 22:30 23:10 WBC 6.0 RBC 3.65 L Hgb 11.3 L Hct 33.1 L MCV 90.7 MCH 31.0 MCHC 34.1 RDW Std Deviation 47.1 H RDW Coeff of Guilherme 14.1 Plt Count 264 MPV 8.7 Immature Gran % (Auto) 0.500 Neut % (Auto) 78.0 H Lymph % (Auto) 11.1 L [place] % (Auto) 9.3 Eos % (Auto) 0.8 Baso % (Auto) 0.3 Absolute Neuts (auto) 4.7 Absolute Lymphs (auto) 0.67 L Nucleated RBC % 0 Sodium 129 L Potassium 3.0 L Chloride 93 L Carbon Dioxide 22.2 Anion Gap 14 BUN 11 Creatinine 0.76 Estim Creat Clear Calc 52.49 Est GFR (MDRD) Non-Af 85 BUN/Creatinine Ratio 13.8 Glucose 140 H Calcium 9.1 Troponin T High Sens 11 Troponin T Hi Sens 2 Hr 14 Urine Color Yellow Urine Clarity Clear Urine pH 8.0 Ur Specific [place] 1.015 Urine Protein 15 H Urine Glucose (UA) Normal Urine Ketones Negative Urine Occult Blood 10 H Urine Nitrite Negative Urine Bilirubin Negative Urine Urobilinogen Normal Ur Leukocyte Esterase Negative Urine RBC 0-5 SEEN Urine WBC 0 SEEN Ur Squamous Epith Cells 0 SEEN Urine Bacteria 0 SEEN Urine Mucus 0 SEEN Radiography Chest X-Ray - ED: 2 View, Read by ED Physician, Read by Radiologist and No Acute Disease Diagnostic Testing: Clinical Impression(s) from Imaging Studies Brain CT 02/01/25 20:53 IMPRESSION: NO ACUTE FINDINGS Reading Location: [place] [address] Chest X-Ray 02/01/25 21:25 IMPRESSION: NO ACUTE FINDINGS. Reading Location: [place] [address] CT scan of the brain was obtained. There is no acute intracranial abnormality. This was interpreted by the radiologist and was also independently reviewed by myself. PA and lateral chest x-ray was obtained. There are 2 views. On my independent interpretation, lung gómez are clear. There is normal cardiac silhouette. Bony thorax is normal. There is no acute process noted. Radiologist also interpreted the x-ray and agrees. EKG Initial EKG: Attestation: I personally reviewed and interpreted this EKG as follows: Interpretation: Sinus Rhythm (With occasional PVCs with a rate of 69) and No Acute Injury Pattern Comments: EKG was obtained. On my independent interpretation, it showed a normal sinus rhythm with occasional PVCs with a rate of 69. CT interval, QRS interval, and QTc intervals were all normal. [place] was normal. There are no acute ST or T wave changes. Prior EKG tracings: available for review Prior: Unchanged (06/14/2024) Treatment and Re-Evaluation :: Patient was given a dose of valuated here. Patient was given Tylenol for her headache. Patient was given dose of potassium. Patient was given IV fluids. Patient was given a dose of Antivert. Patient was feeling better on reevaluation. Patient was able to ambulate without difficulty here in the emergency department. Patient was advised of her findings. Patient was given a prescription for Antivert. Patient was instructed to drink plenty of fluids. Patient was instructed to follow-up with her primary care physician in 5 to 7 days. Patient was instructed to return if worse in any way. Patient understood and was agreeable with the plan. All questions were answered. Discharge Plan Triage Chief Complaint: Dizziness ED Provider: Grey Burns Dx/Rx/DC Orders Clinical Impression: Vertigo, Essential hypertension, Hypokalemia Instructions: ED Vertigo, Unspecified Prescriptions: New meclizine 25 mg tablet 25 mg PO 4X/DAY PRN PRN (Reason: Dizziness) Qty: 20 0RF No Action atorvastatin 40 mg tablet 40 mg PO QDAY potassium chloride 10 mEq capsule, extended release 20 meq PO DAILY ondansetron 8 mg tablet,disintegrating 8 mg PO DAILY loperamide 2 mg capsule 4 mg PO BID folic acid 1 mg tablet 1,000 mcg PO DAILY allopurinol 300 mg tablet 300 mg PO DAILY acyclovir 400 mg tablet 400 mg PO BID azacitidine [Vidaza] 100 mg recon soln subcut Tibsovo 250 mg tablet 500 mg PO DAILY Slow-Mag 71.5 mg tablet,delayed release (DR/EC) 84 mg PO TID duloxetine 60 mg capsule,delayed release(DR/EC) 60 mg PO DAILY Cresemba 186 mg capsule 372 mg PO QDAY pantoprazole 40 mg tablet,delayed release (DR/EC) 40 mg PO DAILY cholecalciferol (vitamin D3) 10 mcg (400 unit) capsule 20 mcg PO DAILY albuterol 90 mcg/actuation aerosol 90 mcg inhalation Q4H PRN PRN (Reason: wheezing) sucralfate 1 gram tablet 1 g PO 4X/DAY famotidine 40 mg tablet 40 mg PO BID Prevymis 480 mg tablet 480 mg PO DAILY ondansetron HCl 8 mg tablet 8 mg PO TID amlodipine 5 mg tablet 5 mg PO DAILY sulfamethoxazole-trimethoprim 800-160 mg tablet 1 tab PO lidocaine-prilocaine 2.5-2.5 % cream topical metoprolol succinate 25 mg tablet extended release 24 hr 25 mg PO DAILY magnesium L-lactate 84 mg tablet extended release 168 mg PO TID Primary Care Provider: Justin Dixon Referrals: Justin Dixon DO [Primary Care Provider] - 3-5 Days Print Language: Israeli Disposition Disposition: Home, Self Care
[2025-02-01] MEDS: diazePAM 5 MG Tablet 2.5 MG PO (21:00)
[2025-02-01 21:07] LABS: Absolute Lymphocyte Count 0.67 X10^3/uL (0.83-4.51); Absolute Neutrophil Count 4.7 X10^3/uL (2.0-7.7); Basophil# 0.02 X10^3/uL; Basophil% 0.3 % (0-1); Eosinophil# 0.05 X10^3/uL; Eosinophils% 0.8 % (0-5); Hematocrit 33.1 % (37-47); Hemoglobin 11.3 g/dL (12.0-15.0); Lymphocyte # 0.67 X10^3/ul (0.83-4.51); Lymphocyte % 11.1 % (19-41); Mean Corp Hgb Conc 34.1 g/dL (32-36); Mean Corpuscular Volume 90.7 fL (81-99); Mean Platelet Vol. 8.7 fl (6.2-12.0); Monocyte# 0.56 X10^3/uL; Monocyte% 9.3 % (0-10); NRBC Flagged by Analyzer 0 % (0-5); Neutrophil # 4.69 X10^3/uL (2.7-7.7); Platelet Count 264 K/mm3 (150-450); RBC Distribution Width CV 14.1 % (11.6-14.6); RBC Distribution Width SD 47.1 fl (35.1-43.9); Red Blood Count 3.65 M/mm3 (4.2-5.4)
--- NOTE | 2025-02-01 21:25 | RAD_ITS ---
PROCEDURE: CHEST PA AND LATERAL 02/01/2025 REASON FOR EXAM: COUGH TECHNIQUE: Frontal and lateral views of the chest. COMPARISON: None. FINDINGS: Hardware: Right chest infusion port. Heart: The heart size is normal. Mediastinum: The mediastinal contour is unremarkable. Lungs: The lungs are clear. Bones: The bones are unremarkable. RAD/Chest PA and Lateral IMPRESSION: NO ACUTE FINDINGS. Reading Location: [place] [id number]
[2025-02-01 21:39] LABS: Anion Gap 14 (5-15); BUN 11 mg/dL (4-19); BUN/Creat Ratio 13.8 RATIO (10-20); Calcium,Total 9.1 mg/dL (7.6-11.0); Carbon Dioxide 22.2 mmol/L (21.0-32.0); Chloride 93 mmol/L (98-108); Creatinine, Serum 0.76 mg/dL (0.70-1.20); EST Glomerular Filtration Rate 85 (>60); Estimated Creatinine Clearance 52.49 ml/min (50-250); Glucose 140 mg/dL (70-99); Sodium Level 129 mmol/L (133-145)
[2025-02-01 21:54] LABS: Troponin T High Sensitivity 11 ng/L (<=14)
[2025-02-01] MEDS: Acetaminophen 500 MG Tablet 1000 MG PO (22:17)
[2025-02-01 22:40] LABS: Bacteria 0 SEEN /hpf (None Seen); Mucous, Urine 0 SEEN /hpf (<or=2+); Squamous Epithelial Cells - UA 0 SEEN /hpf (5-10); White Blood Cells 0 SEEN /hpf (0-5)
[2025-02-01 23:05] LABS: Color, Urine Yellow (Yellow); Glucose, Dipstick Normal (Normal); Ketone-Dipstick Negative (Negative); Leukocyte Esterase-Dipstick Negative /ul (Negative); Nitrite-Dipstick Negative (Negative); Occult Blood-Urine 10 /ul (Negative); Protein-Dipstick 15 mg/dl (Negative); Specific Gravity, Urine 1.015 (1.002-1.030); Urine Bilirubin Dipstick Negative (Negative); Urine Clarity Clear (Clear); Urine Urobilinogen Normal (Normal)
[2025-02-01 23:11] LABS: Red Blood Cells-Urine 0-5 SEEN /hpf (0-5)
[2025-02-01] MEDS: Potassium Chloride Oral Tablet 20 MEQ 40 MEQ PO (23:21)
[2025-02-01] MEDS: Meclizine HCl 25 MG Tablet PO (23:22)
[2025-02-01] MEDS: 0.9% Normal Saline (1000mL) 1,000 ML 1000 ML IV (23:30)
[2025-02-01 23:39] LABS: Troponin T High Sens 2 HR 14 ng/L (<=14)
[2025-02-02] VITALS: BP 144/62; PULSE 70; RESP 17
[2025-02-02 00:45] VITALS: BP 132/53; PULSE 76; RESP 18; TEMP 36.8; O2SAT 94
== END 2025-02-02 00:55 | disposition home or self-care (01) ==
PROVIDERS: Emergency Provider Emergency Medicine; PCP Family Medicine; Visit Provider Emergency Medicine
DX: R42 Dizziness and giddiness (principal); J44.9 Chronic obstructive pulmonary disease, unspecified; I10 Essential (primary) hypertension; E87.6 Hypokalemia; R51.9 Headache, unspecified; E78.5 Hyperlipidemia, unspecified; K21.9 Gastro-esophageal reflux disease without esophagitis; Z79.899 Other long term (current) drug therapy; D64.9 Anemia, unspecified
CPT/HCPCS: 70450; 71046; 80048; 81001; 84484; 85025; 93005; 96360; 99285

== ENCOUNTER → 2025-03-17 | Outpatient (CLI) | payer MEDICARE, BC, SELFPAY | END | disposition home or self-care (01) | LOC: OPMRI 10:39 | PROVIDERS: PCP Family Medicine; Referring Provider Anesthesiology Pain Medicine; Visit Provider Anesthesiology Pain Medicine | DX: M54.16 Radiculopathy, lumbar region (principal) | CPT/HCPCS: 72148 ==

== ENCOUNTER → 2025-04-14 | Outpatient (CLI) | payer MEDICARE, BC, SELFPAY ==
[2025-04-14 15:29] LABS: Hematocrit 32.2 % (37-47); Hemoglobin 10.4 g/dL (12.0-15.0); Immature Granulocytes Count 0.020 X10^3/uL (0.0-0.0); Mean Corp Hgb Conc 32.3 g/dL (32-36); Mean Corpuscular Volume 92.5 fL (81-99); Mean Platelet Vol. 8.7 fl (6.2-12.0); NRBC Flagged by Analyzer 0 % (0-5); POSITIVE DIFFERENTIAL YES; Platelet Count 242 K/mm3 (150-450); RBC Distribution Width CV 15.2 % (11.6-14.6); RBC Distribution Width SD 51.6 fl (35.1-43.9); Red Blood Count 3.48 M/mm3 (4.2-5.4); White Blood Count 4.3 K/mm3 (4.4-11.0)
== END | disposition home or self-care (01) ==
PROVIDERS: PCP Family Medicine; Referring Provider Family Medicine; Visit Provider Family Medicine
DX: R05.9 Cough, unspecified (principal)
CPT/HCPCS: 36415; 71046; 85025

== ENCOUNTER → 2025-04-18 | Outpatient (CLI) | payer MEDICARE, BC, SELFPAY ==
--- NOTE | 2025-04-18 14:47 | CT_ITS ---
PROCEDURE: CHEST WITH CONTRAST 04/18/2025 REASON FOR EXAM: SOLITARY PULMONARY NODULE Hypertension. History of leukemia. TECHNIQUE: CHEST WITH CONTRAST Coronal and Sagittal reconstruction series were provided. CONTRAST: Isovue-300 VOLUME: 100 mL One or more dose reduction techniques were used (e.g., Automated exposure control, adjustment of the mA and/or kV according to patient size, use of iterative reconstruction technique). RADIATION DOSE SUMMARY: CTDlvol: 7.6 mGy DLP: 194.4 mGycm COMPARISON: Prior chest radiograph dated April 15, 2025. FINDINGS: Hardware: A right-sided port a catheter is seen with the tip in the superior vena cava. Lymph nodes: Small bilateral fat containing axillary lymph nodes. Heart and Vasculature: The heart is not enlarged. No significant coronary artery calcification is seen. Lungs and Airways: There is a 6.3 mm linear density in the medial aspect of the lingular segment of the left upper lobe suggestive of possible scarring. This is the abnormality seen on the chest radiograph. There is also evidence of a 5 mm ground-glass nodular density in the posterior medial segment of the right lower lobe as seen on axial image number 98. Pleura: No pleural effusion. Upper Abdomen: Unremarkable Bones: Degenerative changes of the thoracic spine. Minimal loss of height of the T11 vertebrae. CT/Chest WITH Contrast IMPRESSION: Coronary artery calcification (CAC) is is absent The radiographic finding corresponds to a focal area of scarring in the medial aspect of the lingular segment of the left upper lobe. Faint 5 mm ground-glass nodular density in the posterior medial segment of the right lower lobe. Follow-up in 6 months. Reading Location: [id number]
[2025-04-18] MEDS: 0.9 % NaCl (Sterile) Posiflush 10 mL IV (14:50)
[2025-04-18] MEDS: 0.9% Saline Lock 10 ML Syringe IV (14:55)
== END | disposition home or self-care (01) ==
PROVIDERS: PCP Family Medicine; Referring Provider Family Medicine; Visit Provider Family Medicine
DX: R91.1 Solitary pulmonary nodule (principal); J18.9 Pneumonia, unspecified organism
CPT/HCPCS: 71260; 87070; 87205; Q9967

== ENCOUNTER → 2025-07-19 | Outpatient (CLI) | payer MEDICARE, BC, SELFPAY ==
[2025-07-19 15:13] LABS: Color, Urine Yellow (Yellow); Glucose, Dipstick Normal (Normal); Ketone-Dipstick Negative (Negative); Leukocyte Esterase-Dipstick 500 /ul (Negative); Nitrite-Dipstick Negative (Negative); Occult Blood-Urine 25 /ul (Negative); Protein-Dipstick 30 mg/dl (Negative); Specific Gravity, Urine 1.015 (1.002-1.030); Urine Bilirubin Dipstick Negative (Negative)
[2025-07-19 16:18] LABS: AST(SGOT) 25 U/L (<=31); Alanine Aminotransfer ALT/SGPT 11 U/L (<=34); Albumin, Serum 3.9 g/dL (3.4-4.8); Alkaline Phosphatase 91 U/L (35-104); Anion Gap 12 (5-15); BUN 8 mg/dL (4-19); BUN/Creat Ratio 10.7 RATIO (10-20); Calcium,Total 8.8 mg/dL (7.6-11.0); Carbon Dioxide 24.5 mmol/L (21.0-32.0); Chloride 99 mmol/L (98-108); Globulin 2.6 g/dL (2.2-4.2); Glucose 93 mg/dL (70-99); Potassium 3.7 mmol/L (3.3-5.1)
[2025-07-21 10:08] LABS: ANTINUCLEAR ANTIBODIES DIRECT Negative (Negative)
== END | disposition home or self-care (01) ==
LOC: BFHLAB 11:51
PROVIDERS: PCP Family Medicine; Visit Provider Family Medicine
DX: R60.0 Localized edema (principal); E87.1 Hypo-osmolality and hyponatremia
CPT/HCPCS: 36415; 80053; 81002; 84443; 86038; 86225

== ENCOUNTER → 2025-07-22 | Outpatient (CLI) | payer MEDICARE, BC, SELFPAY | END | disposition home or self-care (01) | PROVIDERS: PCP Family Medicine; Visit Provider Family Medicine | DX: R60.0 Localized edema (principal); E07.9 Disorder of thyroid, unspecified | CPT/HCPCS: 36415 ==